=== PATIENT | female | born 1945 | race Caucasian/White ===

== ENCOUNTER 2024-12-14 23:52 | Inpatient (IN) | payer OTHER, SELFPAY ==
[2024-12-14 18:09] VITALS: BP 127/46
--- NOTE | 2024-12-14 19:41 | ED.GENMED ---
History of Present Illness
General
Chief Complaint: Abnormal Lab Value
Time Seen by Provider: 12/14/24 18:50
History of Present Illness
History of Present Illness:
79-year-old female with history of dementia and hypertension presents to the emergency department for evaluation of fatigue and abnormal renal function on outpatient labs. She was admitted to [facility] last year for a similar issue felt to
be prerenal from lack of p.o. intake. She saw her primary care physician last week and was sent for routine outpatient labs which showed a creatinine of 2.9. She followed up today with a supervisor drying and softening who recommended increased fluids and
discontinuation of HCTZ and lisinopril however due to increased fatigue she came here. The patient offers no complaints at this time other than left ear discomfort
Review of Systems
Review of Systems
Allergies reviewed?: Yes
All Other Systems: ROS reviewed and negative except as documented in HPI and ROS
Phy Exam
Physical Exam
Physical Exam:
GEN: Well appearing, NAD, WDWN
HEENT: Oral mucosa moist, no scleral icterus. Cerumen impaction of the left ear
Cardiac: Regular rate and rhythm, no murmurs
Lung: No respiratory distress, no tachypnea, lungs clear to auscultation
Abdomen: Soft and nondistended
MSK: No gross deformity or injuries
Skin: Good color, no pallor or jaundice, no rashes
Neuro: alert and oriented to baseline
Psych: Calm, cooperative
Course
Orders/Labs/Results
Orders:
Orders
12/14/24 19:41
Urinalysis Reflex To Culture Urgent
12/14/24 20:54
Lactated Ringers [Lr] 1,000 ml IV BOLUS
12/14/24 21:00
Complete Blood Count/With Diff Urgent
Comprehensive Metabolic Panel Urgent
12/14/24 21:56
Bladder Scan- Treatment ONCE
Abnormal Lab Results
12/14/24
21:00
RBC 3.93 L 10^6/uL
(4.20-5.40)
Hgb 11.0 L g/dL
(12.0-16.0)
Hct 33.2 L %
(37.0-47.0)
MPV 10.9 H fL
(7.4-10.4)
Carbon Dioxide 20 L mmol/L
(22-30)
BUN 54 H mg/dl
(7-17)
Creatinine 2.8 H mg/dL
(0.6-1.0)
Glucose 65 L mg/dl
(70-99)
12/14/24 21:00
12/14/24 21:00
Vital Signs
Initial and Last Documented VS:
Initial Vital Signs
Temp Pulse Resp BP Pulse Ox
98.6 F 92 20 127/46 97
12/14/24 18:09 12/14/24 18:09 12/14/24 18:09 12/14/24 18:09 12/14/24 18:09
Last Documented Vital Signs
Temp Pulse Resp BP Pulse Ox
98.6 F 70 14 121/39 99
12/14/24 18:09 12/14/24 22:00 12/14/24 22:00 12/14/24 22:00 12/14/24 21:56
MDM/Problems Addressed
MDM/Problems Addressed:
Due to worsening renal function we will admit for IV fluids and further nephrology management. Baseline creatinine reportedly 0.9 on prior labs, per daughter via [facility]
*Critical Care Note
Total Time (30-74mins, 75-104mins- exclusive of procedures): Not Applicable
ED Attending Note
-
Portions of this chart may have been created with voice recognition software.� Occasional wrong word or��sound alike� substitutions may have occurred due to the inherent limitations of voice recognition software.
Discharge Plan
Departure
Patient Disposition: Admit
Date of Disposition: 12/14/24
Time of Disposition: 21:59
Admit to: Med/Surg
Presentation/result/management discussed w/ accepting MD/DO: Hospitalist
Discharge Problem:
Acute kidney injury
Referrals:
Agustin Hearn DO [Family Provider, Family Practice]
Interventions
Interventions:
*Risk Screen - Suicide Last Done: 12/14/24 18:09
*General Assessment Last Done: 12/14/24 18:09
*Neglect/Abuse Screening Last Done: 12/14/24 21:56
*ED- Fall Risk Assessment Last Done: 12/14/24 21:56
*ED COVID-19 Vaccine History Last Done: 12/14/24 21:56
Discharge Date and Time
Print Language: SERBIAN
[2024-12-14] MEDS: LR 1000 IV (21:03)
[2024-12-14 21:11] LABS: % Basophils 0.7 % (0-2); % Immature Granulocytes 0.3 % (0-0.5); % Lymphocytes 23.4 % (20.5-51.1); % Monocytes 5.9 % (1.7-9.3); % Neutrophils 68.7 % (42.2-75.2); Absolute Basophils 0.1 10^3/uL (0-0.2); Absolute Eosinophils 0.1 10^3/uL (0-0.7); Absolute Lymphocytes 1.6 10^3/uL (1.2-3.4); Absolute Monocytes 0.4 10^3/uL (0.1-0.6); Absolute Neutrophils 4.8 10^3/uL (1.4-6.5); Hematocrit 33.2 % (37.0-47.0); Mean Corp Hgb Conc. 33.1 g/dL (33.0-37.0); Mean Corpuscular Volume 84.5 fL (81.0-99.0); Mean Platelet Volume 10.9 fL (7.4-10.4); Nucleated Red Blood Cells % 0 %; Platelet Count 247 10^3/uL (130-400); Red Blood Cell Count 3.93 10^6/uL (4.20-5.40); Red Cell Dist. Width 13.2 % (11.5-14.5); White Blood Cell Count 6.9 10^3/uL (4.8-10.8)
[2024-12-14 21:25] LABS: ALT (SGPT) 11 U/L (0-35); AST (SGOT) 23 U/L (14-36); Albumin 4.2 g/dl (3.5-5.0); Alkaline Phosphatase 114 U/L (38-126); Blood Urea Nitrogen 54 mg/dl (7-17); Calcium 10.1 mg/dl (8.4-10.2); Carbon Dioxide 20 mmol/L (22-30); Chloride 103 mmol/L (98-107); Glucose 65 mg/dl (70-99); Potassium 4.3 mmol/L (3.5-5.1); Sodium 138 mmol/L (135-145); Total Bilirubin 1.1 mg/dl (0.2-1.3); Total Protein 7.1 g/dl (6.3-8.2); eGFR 16.55
[2024-12-14 21:54] VITALS: BP 126/43
[2024-12-14 21:56] VITALS: BMI 26.0
[2024-12-14 22:00] VITALS: BP 121/39
--- NOTE | 2024-12-14 22:11 | HPS.HSE ---
Family Physician
-
Family Physician: Agustin Hearn
Chief Complaint
-
abnormal out patient labs
History of Present Illness
Patient is a 79-year-old female with past medical history significant for hypertension, hyperlipidemia, DM II and dementia who presented to [facility] ED for evaluation of abnormal out patient labs. Patient daughter and at bedside who help with
HPI. Patient was hospitalized fall with JACK at [facility], treated with IVF and kidney function returned to baseline. Since then kidney function has been monitored out patient and has slowly worsened. Patient had labs drawn on December 08, 2024 when
primary referred her to see nephrology. Patient saw clinical data analyst at [facility] earlier today and he recommended patient drink 4 bottles of water daily and repeat labs on Wednesday. Patient went home and became increasingly fatigued so family elected to
bring patient to hospital for evaluation. Denies any recent illness, fever, chills, cough, shortness of breath, chest pain, nausea, vomiting, constipation, diarrhea or urinary symptoms.
Medical History
Past Medical History
Past Medical History: Reports Other
Additional Past Medical History:
hypertension
hyperlipidemia
DM II
dementia
Hx kidney stones
Past Surgical History: Reports Other
Additional Past Surgical History:
cholecystectomy 1996
tonsillectomy
Social History
Unable to obtain full social history at this time due to: Dementia
Tobacco: Non-smoker
Alcohol: None
Drug: None
Personal:
Living: With Family
Family History
Family History: Other (Mother: HTN, uterine cancer; Father: CVA)
Allergies / Home Medications
Allergies reflects when Allergies were last updated in [employer].
Home Medications with original date entered in [employer]
Allergy/Medication List:
Allergies
Allergy/AdvReac Type Severity Reaction Status Date / Time
amlodipine Allergy Unknown Verified 12/14/24 18:13
cephalexin Allergy Unknown Verified 12/14/24 18:13
ciprofloxacin (From Cipro) Allergy Unknown Verified 12/14/24 18:13
levofloxacin Allergy Unknown Verified 12/14/24 18:13
Penicillins Allergy Unknown Verified 12/14/24 18:13
Sulfa (Sulfonamide Allergy Unknown Verified 12/14/24 18:13
Antibiotics)
Home Medications
atorvastatin 20 mg tablet 20 mg PO TID 12/14/24
donepezil 10 mg tablet (Aricept) 10 mg PO HS 12/14/24
ergocalciferol (vitamin D2) 25,000 unit capsule 50,000 unit PO WEEKLY 12/14/24
folic acid 1 mg tablet 1 mg PO DAILY 12/14/24
hydrochlorothiazide 12.5 mg tablet 12.5 mg PO DAILY 12/14/24
lisinopril 40 mg tablet 40 mg PO DAILY 12/14/24
metformin 500 mg tablet 500 mg PO TID 12/14/24
metoprolol succinate 200 mg tablet,extended release 24 hr 200 mg PO DAILY 12/14/24
Review of Systems
-
Unable to obtain full review of systems at this time due to: Dementia
History Source: Patient
Physical Exam
Vital Signs
Vital Signs
Temp Pulse Resp BP Pulse Ox
98.6 F 70 14 121/39 99
12/14/24 18:09 12/14/24 22:00 12/14/24 22:00 12/14/24 22:00 12/14/24 21:56
Physical Exam
General: Well Developed, Well Nourished and No Apparent Distress
HEENT: NormoCephalic, Moist mucous membranes, Atraumatic, Nose Appears Normal and Ears Appear Normal
Respiratory: Clear
Cardiac: S1/S2 and Regular Rhythm
Breast: Deferred by me
GI: Soft, Non Tender, Non Distended and Normal Bowel Sounds; No Organomegaly
Rectal: Deferred by Provider
Genito-urinary: Deferred by me
Musculoskeletal: No Clubbing, No Cyanosis and No Edema
Skin: IV/Catheter Site
Neuro: Awake, Alert and Nonfocal/grossly intact
Psych: Calm and Apparent Dementia
Laboratory Results
-
12/14/24 21:00
12/14/24 21:00
Laboratory Results
Total Bilirubin 1.1 mg/dl (0.2-1.3) 12/14/24 21:00
AST 23 U/L (14-36) 12/14/24 21:00
ALT 11 U/L (0-35) 12/14/24 21:00
Alkaline Phosphatase 114 U/L (38-126) 12/14/24 21:00
Data Reviewed
-
Lab Data: Labs Reviewed by me (BUN 54, Creat 2.8, eGFR 16.55)
Impression/Plan
-
IMPRESSION/PLAN:
#abnormal out patient labs
#acute kidney injury
BUN 54, Creat 2.8, eGFR 16.55
- Admit to med/surg
- IVF NSS 100cc/hr
- monitor BMP
- Check UA and FENA
- bladder scan protocol
- consider Nephrology Consult and renal US if no improvment
#hypertension
- continue metoprolol
- Hold HCTZ and Lisinopril in setting of JACK
#hyperlipidemia
- continue atorvastatin
#DM II
- hold metformin in setting of JACK
#dementia
- continue donepezil
Code status: full code
DVT prophylaxis: heparin sq
--- NOTE | 2024-12-14 22:48 | W.PN.UPDATE ---
Addendum entered and electronically signed by Kaley Agrawal MD 12/14/24 22:50:
Also with urinary burning which may indicate UTI.
Original Note:
Update Note
Progress Note Update
This is an addendum to H&P written by Nisha Germain on 12/14/2024. Patient seen and examined independently with LIBRARY SCIENCE INSTRUCTOR.
79-year-old female past medical history of DM, HLD, hypertension, dementia, kidney stones presenting with fatigue and abnormal renal function on outpatient labs. Creatinine of 2.9. She has chronic loose stools of little bit worsening of her
chronic diarrhea over the past few weeks.
She was hospitalized at [place] in May for prerenal JACK which improved with IV fluids with progressive worsening of renal function. She saw nephrology today who recommended increased free water intake. HCTZ/lisinopril is not a new medication.
Patient with JACK likely combination of prerenal possibly from GI losses and secondary to hydrochlorothiazide/lisinopril.
IV fluids. Hold hydrochlorothiazide/lisinopril. Check urinalysis, FENA, Bladder scan protocol. Nephrology and bladder ultrasound if no improvement in renal function.
[2024-12-14 23:00] VITALS: BP 117/39
[2024-12-14 23:44] LABS: Urine Albumin Negative (Neg - Trace); Urine Bilirubin Negative (Negative); Urine Character Clear (Clear); Urine Color Yellow; Urine Glucose Negative (Negative); Urine Ketone 1+ (Negative); Urine Leukocyte 2+ (Negative); Urine Nitrite Negative (Negative); Urine Occult Blood Negative (Negative); Urine Urobilinogen Negative (Neg - 1+)
[2024-12-15 00:16] VITALS: BP 131/49; BMI 24.1
[2024-12-15] MEDS: HEPARIN 5000 UNITS SC ×4 (00:39→22:39)
[2024-12-15] MEDS: NSS 1000 IV ×3 (00:40→20:19)
[2024-12-15 00:47] LABS: Urine Squamous Cell >30 /LPF (Few); Urine Urothelial Cell >30 /LPF (FEW)
[2024-12-15 00:48] LABS: Urine Bacteria Moderate (Negative); Urine Red Blood Cell 0-2 /HPF (0-2); Urine White Cell >100 /HPF (0-5)
[2024-12-15 06:56] VITALS: BP 136/56
[2024-12-15 07:32] LABS: Blood Urea Nitrogen 45 mg/dl (7-17); Calcium 9.3 mg/dl (8.4-10.2); Carbon Dioxide 24 mmol/L (22-30); Chloride 107 mmol/L (98-107); Estimated Creatinine Clearance 15 ml/min; Glucose 73 mg/dl (70-99); Potassium 3.6 mmol/L (3.5-5.1); Sodium 139 mmol/L (135-145); eGFR 20.96
[2024-12-15] MEDS: TOPROL XL 200 MG PO (08:19)
[2024-12-15] MEDS: FOLVITE 1 MG PO (08:19)
--- NOTE | 2024-12-15 08:27 | W.PN.HOSP.TC ---
Today's Communication/Plan
-
Monitor BMP
Assessment / Plan
Assessment / Plan
Impression:
79-year-old female here with history of hypertension, hyperlipidemia, diabetes, dementia who presented to [facility] with abnormal blood work concerning of acute on chronic renal failure and also change in mental status. JACK suspect
prerenal/hydrochlorothiazide/lisinopril induced. �Started on IV fluids, nephrology
Assessment/plan:
Acute renal failure on chronic kidney
BUN 54, Creat 2.8, eGFR 16.55
- Admit to med/surg
- IVF NSS 100cc/hr
- monitor BMP
- Ultrasound kidney/
- bladder scan protocol
- Consult nephrology
Concern of UTI.
Patient has a long list of antibiotic allergy we will hold off starting antibiotic.
Pending urine culture
Essential hypertension.
- continue metoprolol
- Hold HCTZ and Lisinopril in setting of JACK
Hyperlipidemia
- continue atorvastatin
History of diabetes mellitus
hold metformin in setting of JACK
Blood sugar seems to be controlled
Insulin sliding scale
Diabetic diet
Hemoglobin A1c
Dementia
- continue donepezil
CODE STATUS: Full code
DVT prophylaxis: Lovenox
Diet: Cardiac diet
Family communication: Discussed with daughter at bedside
Disposition: Continue to monitor BMP
Total time spent on today's encounter was 65 minutes which included time spent in counseling the patient/family regarding diagnosis and treatment plan as listed above, goals of care, and symptom management. Case was discussed with nursing staff,
specialists, and care coordinators/case management. All labs and imaging personally reviewed by me. Remainder the time spent in detailed review of previous records, lab data, imaging, and other medical provider documentation.
Anticipated Discharge: 24 - 48 hours
Subjective/Interval History
-
Date of Service: December 15, 2024
Patient seen and examined at bedside, daughter at bedside, denies any chest pain or shortness of breath, no abdominal pain, no nausea, no vomiting, no diarrhea or constipation.
Objective Data
-
Labs:
Laboratory Results
12/14/24 12/15/24
21:00 06:19
WBC 6.9
Hgb 11.0 L
Hct 33.2 L
Plt Count 247
Sodium 138 139
Potassium 4.3 3.6
Chloride 103 107
Carbon Dioxide 20 L 24
BUN 54 H 45 H
Creatinine 2.8 H 2.3 H
Glucose 65 L 73
Calcium 10.1 9.3
Total Bilirubin 1.1
AST 23
ALT 11
Alkaline Phosphatase 114
Vital Signs:
Vital Signs
Temp Pulse Resp BP Pulse Ox
97.5 F 69 16 136/56 99
12/15/24 06:56 12/15/24 08:19 12/15/24 06:56 12/15/24 08:19 12/15/24 08:15
I&O
12/14/24 12/15/24 12/16/24
06:59 06:59 06:59
Intake Total 700 / 700
Balance 700 / 700
Physical Exam
-
General: Well Developed, Well Nourished, No Apparent Distress and Comfortable
HEENT: Normocephalic, Atraumatic, Moist Mucous Membranes, No Ptosis, PERRLA and Nose Appears Normal
Respiratory: Clear to Auscultation and Non Labored Respirations
Cardiac: Regular Rhythm and S1/S2
Breast: Deferred by me
GI: Soft, Nontender, Nondistended and Normal Bowel Sounds
Genito-urinary: No Costovertebral Tender
Musculoskeletal: No Clubbing, No Cyanosis and No Edema
Skin: Warm
Neuro: Awake, Alert, Oriented, AO x 3 and No Motor Deficits
Psych: Calm
Data Reviewed
-
Diagnostic Radiology: Image personally visualized and interpreted and Report Reviewed by me
CT Scan: Image personally visualized and interpreted and Report Reviewed by me
Ultrasound: Image personally visualized and interpreted and Report Reviewed by me
MRI: Image personally visualized and interpreted and Report Reviewed by me
Medical Tests (Nuc Med, Echo etc): Image personally visualized and interpreted and Report Reviewed by me
Labs: Labs Reviewed by me
Old Records: Reviewed
[2024-12-15 10:25] VITALS: BP 120/52; PULSE 52; O2SAT 99
--- NOTE | 2024-12-15 10:31 | W.CON.NEPH ---
Consultation
-
Date/Time Consultation Requested: 12/15/2024 10:30 AM
Date/Time Consultation Performed: 12/15/2024 1038
Requesting Provider: Dr. Awad
Performing Provider: Dr. Gloria
Reason for Consultation: Acute kidney/CKD
Medical History
-
Chief Complaint: Acute kidney injury
History of Present Illness:
Patient is a 79-year-old female with past medical history significant for hypertension ( on lisinopril/hctz), hyperlipidemia (on statin therapy), DM II (on metformin) and dementia who presented to [facility] ED for evaluation of abnormal out patient
labs.. Patient was hospitalized in fall of 2023 with JACK at [facility], treated with IVF and kidney function returned to baseline. Since then kidney function has been monitored out patient and has slowly worsened. Patient had labs drawn on December 08, 2024
when primary referred her to see nephrology. Patient saw clerical adjudicator at [facility] earlier today and he recommended patient drink 4 bottles of water daily and repeat labs on Wednesday. Patient went home and became increasingly fatigued so family
elected to bring patient to hospital for evaluation. Denies any recent illness, fever, chills, cough, shortness of breath, chest pain, nausea, vomiting, constipation, diarrhea or urinary symptoms. Nephrology was consulted for a creatinine of 2.3.
Past Medical History
hyperlipidemia
CKd ?
DM II
dementia
Hx kidney stones
Past Surgical History: Reports Other
Additional Past Surgical History:
cholecystectomy 1996
tonsillectomy
Social History
Tobacco: Non-Smoker
Family History
no ckd
Allergies / Home Medications
Allergy/AdvReac Type Severity Reaction Status Date / Time
amlodipine Allergy Unknown Verified 12/14/24 18:13
cephalexin Allergy Unknown Verified 12/14/24 18:13
ciprofloxacin (From Cipro) Allergy Unknown Verified 12/14/24 18:13
levofloxacin Allergy Unknown Verified 12/14/24 18:13
Penicillins Allergy Unknown Verified 12/14/24 18:13
Sulfa (Sulfonamide Allergy Unknown Verified 12/14/24 18:13
Antibiotics)
�Medication �Instructions �Recorded �Confirmed �Type
atorvastatin 20 mg tablet 20 mg PO TID 12/14/24 12/14/24 History
donepezil 10 mg tablet (Aricept) 10 mg PO HS 12/14/24 12/14/24 History
ergocalciferol (vitamin D2) 25,000 50,000 unit PO WEEKLY 12/14/24 12/14/24 History
unit capsule
folic acid 1 mg tablet 1 mg PO DAILY 12/14/24 12/14/24 History
hydrochlorothiazide 12.5 mg tablet 12.5 mg PO DAILY 12/14/24 12/14/24 History
lisinopril 40 mg tablet 40 mg PO DAILY 12/14/24 12/14/24 History
metformin 500 mg tablet 500 mg PO TID 12/14/24 12/14/24 History
metoprolol succinate 200 mg 200 mg PO DAILY 12/14/24 12/14/24 History
tablet,extended release 24 hr
Review of Systems
-
Unable to obtain full review of systems at this time due to: Dementia (Can still answer most questions, not oriented to time or month but knows year)
History Source: Patient
Abdomen/GI: Diarrhea
Physical Exam
Vital Signs
Vital Signs
Temp Pulse Resp BP Pulse Ox
97.5 F 69 16 136/56 99
12/15/24 06:56 12/15/24 08:19 12/15/24 06:56 12/15/24 08:19 12/15/24 08:15
Lab Results
12/14/24 21:00
12/15/24 06:19
WBC 6.9 10^3/uL (4.8-10.8) 12/14/24 21:00
RBC 3.93 10^6/uL (4.20-5.40) L 12/14/24 21:00
Hgb 11.0 g/dL (12.0-16.0) L 12/14/24 21:00
Hct 33.2 % (37.0-47.0) L 12/14/24 21:00
Plt Count 247 10^3/uL (130-400) 12/14/24 21:00
Sodium 139 mmol/L (135-145) 12/15/24 06:19
Potassium 3.6 mmol/L (3.5-5.1) 12/15/24 06:19
Chloride 107 mmol/L (98-107) 12/15/24 06:19
Carbon Dioxide 24 mmol/L (22-30) 12/15/24 06:19
BUN 45 mg/dl (7-17) H 12/15/24 06:19
Creatinine 2.3 mg/dL (0.6-1.0) H 12/15/24 06:19
eGFR 20.96 12/15/24 06:19
Glucose 73 mg/dl (70-99) 12/15/24 06:19
Calcium 9.3 mg/dl (8.4-10.2) 12/15/24 06:19
Albumin 4.2 g/dl (3.5-5.0) 12/14/24 21:00
Physical Exam
General: Well Developed, Well Nourished and No Apparent Distress
HEENT: NormoCephalic, Moist mucous membranes, Atraumatic, Nose Appears Normal and Ears Appear Normal
Respiratory: Clear
Cardiac: S1/S2 and Regular Rhythm
Breast: Deferred by me
GI: Soft, Non Tender, Non Distended and Normal Bowel Sounds; No Organomegaly
Rectal: Deferred by Provider
Genito-urinary: Deferred by me
Musculoskeletal: No Clubbing, No Cyanosis and No Edema
Skin: IV/Catheter Site
Neuro: Awake, Alert and Nonfocal/grossly intact
Psych: Calm and Apparent Dementia, answers most questions correctly but was unable to recall month, recognizes all family members
Vascular: +1 radial and +1 anterior and posterior tibial
Data Reviewed
-
Labs: Labs Reviewed by me (BMP CBC, UA)
Old Records: Requested (Request records from [facility])
Assessment/Plan
-
Impression:
JACK?
CKD
Hypertension
Diabetes
Hyperlipidemia
Dementia
Plan:
JACK/CKD new workuup
-JACK likely related to hypotension which was noted prior to arrival to emergency room as per daughter who checked her blood pressure which was significantly depressed
-IV prerenal stimulus, will also check cortisol, follow-up urine culture for possible urosepsis
- Urinalysis was without protein or blood, therefore not consistent with acute or chronic GN
- Check postvoid bladder scan to evaluate for obstructive component
- Check kidney and bladder ultrasound in regards to CKD work
- Quantitate any underlying tubular proteinuria with urine protein to creatinine
- VINNIE and hydrochlorothiazide currently held
[2024-12-15 11:20] VITALS: BP 120/52; PULSE 52; O2SAT 99
[2024-12-15 15:36] VITALS: BP 116/49
[2024-12-15 15:40] LABS: Urine Sodium 22 mmol/L (30-90)
--- NOTE | 2024-12-15 15:47 | PTCARENOTE ---
Pt awake and alert; oriented to self/place/birthdate; confused at times to date/year; forgetful. GRECO well; OOB to BR/chair with assistance; sl unsteady w/OOb activity. VSS. On room air-pulse ox 100%, no SOB noted. Abd soft, rounded, gaye PO well.
Voids in BR without difficulty. IVF's NSS @ 100 ml/hr infusing via Rt forearm site without sx of infiltration. Resting in bed at present, no c/o. Will continue to monitor.
[2024-12-15 16:05] LABS: Glucose - Point of Care 139 mg/dl (70-99)
--- NOTE | 2024-12-15 17:33 | CM ---
Alert awake oriented patient who lives with her Layo and son Kenny 47yo in a 1 story home with 5 steps to enter.She is independent in activates of daily living.She does not drive .No DME. Reviewed PT OT = SNF. Daughter wants her to go to
SNF. Pt does not want to go to SNF. [facility] Data given form [facility] to dgt .
No VN in past . No SNF hx
Pharmacy [facility]
PCP Dr Hearn
PLAN Home with VN VS SNF will need auth
[2024-12-15] MEDS: ARICEPT 10 MG PO (20:21)
[2024-12-15] MEDS: LIPITOR 40 MG PO (20:21)
[2024-12-15 21:07] LABS: Glucose - Point of Care 175 mg/dl (70-99)
[2024-12-15 23:05] VITALS: BP 159/61
[2024-12-16 05:35] LABS: Protein/creatinine Ratio 0.3; Urine Protein 19 mg/dl
[2024-12-16 05:41] LABS: Blood Urea Nitrogen 32 mg/dl (7-17); Calcium 8.8 mg/dl (8.4-10.2); Carbon Dioxide 22 mmol/L (22-30); Chloride 113 mmol/L (98-107); Estimated Creatinine Clearance 22 ml/min; Glucose 97 mg/dl (70-99); Potassium 3.9 mmol/L (3.5-5.1); Sodium 141 mmol/L (135-145)
[2024-12-16 06:00] VITALS: BMI 24.8
[2024-12-16] MEDS: NSS 1000 IV ×2 (06:09→19:36)
[2024-12-16 06:11] LABS: Cortisol, Random 8.2 ug/dl
[2024-12-16 07:04] LABS: Glucose - Point of Care 91 mg/dl (70-99)
[2024-12-16 07:40] VITALS: BP 119/51
[2024-12-16] MEDS: HEPARIN 5000 UNITS SC ×2 (08:40→17:03)
[2024-12-16] MEDS: TOPROL XL PO (08:41)
[2024-12-16] MEDS: FOLVITE 1 MG PO (08:41)
[2024-12-16 10:52] LABS: Glycohemoglobin (HgbA1c) 6.3 % (4.0-5.6)
[2024-12-16 12:23] LABS: Glucose - Point of Care 114 mg/dl (70-99)
--- NOTE | 2024-12-16 13:00 | W.PN.HOSP.TC ---
Today's Communication/Plan
-
Ct abdomen and pelvis.
Assessment / Plan
Assessment / Plan
Impression:
79-year-old female here with history of hypertension, hyperlipidemia, diabetes, dementia who presented to [facility] with abnormal blood work concerning of acute on chronic renal failure and also change in mental status. JACK suspect
prerenal/hydrochlorothiazide/lisinopril induced. �Started on IV fluids, nephrology.
Creatinine continue to improve, patient was having diarrhea
Assessment/plan:
Acute renal failure on chronic kidney
BUN 54, Creat 2.8, eGFR 16.55
- Admit to med/surg
- IVF NSS 100cc/hr
- monitor BMP
- Ultrasound kidney/
- bladder scan protocol
- Consult nephrology
12/16
CT abdomen pending
BUN
(7-17�mg/dl) 54�H
45�H
32�H
Creatinine
(0.6-1.0�mg/dL) 2.8�H
2.3�H
1.6�H
UTI ruled out
Diarrhea illness, rule out infectious diarrhea.
Stool sample.
CT abdomen and pelvis pending
Essential hypertension.
- continue metoprolol
- Hold HCTZ and Lisinopril in setting of JACK
Hyperlipidemia
- continue atorvastatin
History of diabetes mellitus
hold metformin in setting of JACK
Blood sugar seems to be controlled
Insulin sliding scale
Diabetic diet
Hemoglobin A1c 6.3
Dementia
- continue donepezil
CODE STATUS: Full code
DVT prophylaxis: Lovenox
Diet: Cardiac diet
Family communication: Discussed with daughter at bedside
Disposition: Ct abdomen and pelvis.
Total time spent on today's encounter was 65 minutes which included time spent in counseling the patient/family regarding diagnosis and treatment plan as listed above, goals of care, and symptom management. Case was discussed with nursing staff,
specialists, and care coordinators/case management. All labs and imaging personally reviewed by me. Remainder the time spent in detailed review of previous records, lab data, imaging, and other medical provider documentation.
Anticipated Discharge: Within 24 hours
Subjective/Interval History
-
Date of Service: December 16, 2024
Patient seen and examined at bedside, family at bedside, patient had episodes of change in mental status today morning, still with diarrhea and abdominal discomfort.
Denies any chest pain or shortness of breath.
Objective Data
-
Labs:
Laboratory Results
12/16/24
04:13
Sodium 141
Potassium 3.9
Chloride 113 H
Carbon Dioxide 22
BUN 32 H
Creatinine 1.6 H
Glucose 97
Calcium 8.8
Vital Signs:
Vital Signs
Temp Pulse Resp BP Pulse Ox
97.5 F 54 16 119/51 99
12/16/24 07:40 12/16/24 08:41 12/16/24 07:40 12/16/24 07:40 12/16/24 07:40
I&O
12/15/24 12/16/24 12/17/24
06:59 06:59 06:59
Intake Total 700 / 700 1959
Balance 700 / 700 1959
Physical Exam
-
General: Well Developed, Well Nourished, No Apparent Distress and Comfortable
HEENT: Normocephalic, Atraumatic, Moist Mucous Membranes, No Ptosis, PERRLA and Nose Appears Normal
Respiratory: Clear to Auscultation and Non Labored Respirations
Cardiac: Regular Rhythm and S1/S2
Breast: Deferred by me
GI: Soft, Nontender, Nondistended and Normal Bowel Sounds
Genito-urinary: No Costovertebral Tender
Musculoskeletal: No Clubbing, No Cyanosis and No Edema
Skin: Warm
Neuro: Awake, Alert, Oriented, AO x 3 and No Motor Deficits
Psych: Calm
Data Reviewed
-
Diagnostic Radiology: Image personally visualized and interpreted and Report Reviewed by me
CT Scan: Image personally visualized and interpreted and Report Reviewed by me
Ultrasound: Image personally visualized and interpreted and Report Reviewed by me
MRI: Image personally visualized and interpreted and Report Reviewed by me
Medical Tests (Nuc Med, Echo etc): Image personally visualized and interpreted and Report Reviewed by me
Labs: Labs Reviewed by me
Old Records: Reviewed
[2024-12-16] MEDS: OMNIPAQUE 50 ML PO (13:26)
--- NOTE | 2024-12-16 13:50 | W.PN.NEPH.PH ---
Today's Communication / Plan
-
JACK improving
for CT scan
bp more stable
Assessment/Plan
-
Impression:
JACK?
CKD
Hypertension
Diabetes
Hyperlipidemia
Dementia
Plan:
JACK/CKD new workuup
-JACK likely related to hypotension which was noted prior to arrival to emergency room as per daughter who checked her blood pressure which was significantly depressed
-IV prerenal stimulus, cortisol 8 up.cr ratio 300mg
- Urinalysis was without protein or blood, therefore not consistent with acute or chronic GN
- Checked postvoid bladder scan to evaluate for obstructive component
-Follow-up CT scan: re CKD and ongoing diarrhea
- VINNIE and hydrochlorothiazide currently held
-
-
Date of Service: December 16, 2024
CC / HPI / ROS
-
Chief Complaint:
JACK
History of Present Illness:
creatinine down to 1.6
bp more stable
Review of Systems:
subjectively non oilguriic
diarrhea
Labs
-
Labs:
WBC 6.9 10^3/uL (4.8-10.8) 12/14/24 21:00
RBC 3.93 10^6/uL (4.20-5.40) L 12/14/24 21:00
Hgb 11.0 g/dL (12.0-16.0) L 12/14/24 21:00
Hct 33.2 % (37.0-47.0) L 12/14/24 21:00
Plt Count 247 10^3/uL (130-400) 12/14/24 21:00
Sodium 141 mmol/L (135-145) 12/16/24 04:13
Potassium 3.9 mmol/L (3.5-5.1) 12/16/24 04:13
Chloride 113 mmol/L (98-107) H 12/16/24 04:13
Carbon Dioxide 22 mmol/L (22-30) 12/16/24 04:13
BUN 32 mg/dl (7-17) H 12/16/24 04:13
Creatinine 1.6 mg/dL (0.6-1.0) H 12/16/24 04:13
eGFR 32.40 12/16/24 04:13
Glucose 97 mg/dl (70-99) 12/16/24 04:13
Calcium 8.8 mg/dl (8.4-10.2) 12/16/24 04:13
Albumin 4.2 g/dl (3.5-5.0) 12/14/24 21:00
Physical Exam
-
Vital Signs:
Vital Signs
Temp Pulse Resp BP Pulse Ox
97.5 F 54 16 119/51 99
12/16/24 07:40 12/16/24 08:41 12/16/24 07:40 12/16/24 07:40 12/16/24 07:40
Cardiovascular:: Regular rate and rhythm
Respiratory:: Bilateral: CTA
Lung Excursion:: Normal
Abdomen:: Nontender and Soft
Bowel Sounds:: Normal
Extremity Edema:: None: Bilateral:
Nicholson Catheter: No
[2024-12-16 15:35] VITALS: BP 142/57
[2024-12-16 16:56] LABS: Glucose - Point of Care 134 mg/dl (70-99)
--- NOTE | 2024-12-16 17:55 | CON.MD ---
Consultation - Medical
-
see dictated note
pt received all care thru aleida/vickie
remote hx of stones
presents with acute on chronic renal insuff
CT shows large volume bilateral stones with large right obstructing ureteral stone with sig hydro
pt has been in house for over 48hrs- not toxic and no pain
reviewed with pt and
will staged procedures given stone burden
tomorrow for right stent- possible ureteroscopy
risks, benefits, alternatives and disabilities reviewed
Consultation
-
Date/Time Consultation Requested: 12/16/24 at 5pm
Date/Time Consultation Performed: 12/16/24 at 5:30pm
Requesting Provider: dr ocampo
Performing Provider: dr capps
Reason for Consultation: stones
[2024-12-16] MEDS: LIPITOR 40 MG PO (21:15)
[2024-12-16] MEDS: ARICEPT 10 MG PO (21:15)
[2024-12-16 21:16] LABS: Glucose - Point of Care 86 mg/dl (70-99)
[2024-12-16 23:31] VITALS: BP 147/66
[2024-12-17] VITALS (11 sets, daily range): BP systolic 115–161; BP diastolic 56–79; BMI 24.6
[2024-12-17 00:07] LABS: Glucose - Point of Care 80 mg/dl (70-99)
[2024-12-17] MEDS: NSS 1000 IV ×2 (05:18→22:51)
[2024-12-17 05:46] LABS: Hematocrit 31.1 % (37.0-47.0); Hemoglobin 10.3 g/dL (12.0-16.0); Mean Corp Hgb Conc. 33.1 g/dL (33.0-37.0); Mean Corpuscular Hgb 28.2 pg (27.0-31.0); Mean Corpuscular Volume 85.2 fL (81.0-99.0); Mean Platelet Volume 11.7 fL (7.4-10.4); Platelet Count 215 10^3/uL (130-400); Red Blood Cell Count 3.65 10^6/uL (4.20-5.40); Red Cell Dist. Width 13.5 % (11.5-14.5); White Blood Cell Count 5.5 10^3/uL (4.8-10.8)
[2024-12-17 05:48] LABS: Glucose - Point of Care 79 mg/dl (70-99)
[2024-12-17 06:13] LABS: Blood Urea Nitrogen 20 mg/dl (7-17); Calcium 8.7 mg/dl (8.4-10.2); Carbon Dioxide 19 mmol/L (22-30); Chloride 115 mmol/L (98-107); Estimated Creatinine Clearance 27 ml/min; Glucose 83 mg/dl (70-99); Potassium 3.7 mmol/L (3.5-5.1); Sodium 142 mmol/L (135-145); eGFR 41.57
[2024-12-17] MEDS: FOLVITE 1 MG PO (08:08)
[2024-12-17] MEDS: TOPROL XL 200 MG PO (08:08)
--- NOTE | 2024-12-17 08:23 | W.PN.UPDATE ---
Update Note
Progress Note Update
pt stable overnight
cr normalized
plan to OR today for stent/ureteroscopy
--- NOTE | 2024-12-17 11:19 | W.PN.HOSP.TC ---
Today's Communication/Plan
-
OR by urology today
Assessment / Plan
Assessment / Plan
Impression:
79-year-old female here with history of hypertension, hyperlipidemia, diabetes, dementia who presented to [facility] with abnormal blood work concerning of acute on chronic renal failure and also change in mental status. JACK suspect
prerenal/hydrochlorothiazide/lisinopril induced. �Started on IV fluids, nephrology.
Creatinine continue to improve, patient was having diarrhea
Ordered CT abdomen pelvis which shows distal right ureteral stone, urology consulted and plan for OR today
Assessment/plan:
Acute renal failure on chronic kidney
BUN 54, Creat 2.8, eGFR 16.55
- Admit to med/surg
- IVF NSS 100cc/hr
- monitor BMP
- Ultrasound kidney/
- bladder scan protocol
- Consult nephrology
12/16
CT abdomen shows:
Some right renal atrophy. Nonobstructing right renal calculi. Moderate right hydroureteronephrosis with 0.5 cm calculus seen in the distal right ureter.
Nonobstructing left renal calculi.
Prior cholecystectomy.
Tiny bilateral pleural effusions.
12/17
Creatinine proved.
Surgery consulted.
Patient for OR today for stent/ureteroscopy.
Distal right ureter stone with Moderate right hydroureteronephrosis
Urology consulted.
For OR today.
UTI ruled out
Diarrhea illness, rule out infectious diarrhea.
Stool sample.
CT abdomen and pelvis shwos Sigmoid diverticulosis, limited without IV contrast with some at least diffuse relative wall thickening which may be due to underdistention. Other etiology of the sigmoid wall thickening such as colitis or less likely
diverticulitis cannot be excluded. Small volume free fluid in the dependent true pelvis.
C diff negative, pending other stool study
Essential hypertension.
- continue metoprolol
- Hold HCTZ and Lisinopril in setting of JACK
Hyperlipidemia
- continue atorvastatin
History of diabetes mellitus
hold metformin in setting of JACK
Blood sugar seems to be controlled
Insulin sliding scale
Diabetic diet
Hemoglobin A1c 6.3
Dementia
- continue donepezil
CODE STATUS: Full code
DVT prophylaxis: Lovenox
Diet: Cardiac diet
Family communication: Discussed with daughter at bedside
Disposition: OR by urology today
Total time spent on today's encounter was 65 minutes which included time spent in counseling the patient/family regarding diagnosis and treatment plan as listed above, goals of care, and symptom management. Case was discussed with nursing staff,
specialists, and care coordinators/case management. All labs and imaging personally reviewed by me. Remainder the time spent in detailed review of previous records, lab data, imaging, and other medical provider documentation.
Anticipated Discharge: 24 - 48 hours
Subjective/Interval History
-
Date of Service: December 17, 2024
Patient seen and examined at bedside, denies any chest pain or shortness of breath, no abdominal pain, no nausea, no vomiting, still with diarrhea.
Objective Data
-
Labs:
Laboratory Results
12/17/24
04:27
WBC 5.5
Hgb 10.3 L
Hct 31.1 L
Plt Count 215
Sodium 142
Potassium 3.7
Chloride 115 H
Carbon Dioxide 19 L
BUN 20 H
Creatinine 1.3 H
Glucose 83
Calcium 8.7
Vital Signs:
Vital Signs
Temp Pulse Resp BP Pulse Ox
97.6 F 62 14 134/59 97
12/17/24 07:20 12/17/24 07:20 12/17/24 07:20 12/17/24 07:20 12/17/24 07:20
I&O
12/16/24 12/17/24 12/18/24
06:59 06:59 06:59
Intake Total 1959 720 / 720
Balance 1959 720 / 720
Physical Exam
-
General: Well Developed, Well Nourished, No Apparent Distress and Comfortable
HEENT: Normocephalic, Atraumatic, Moist Mucous Membranes, No Ptosis, PERRLA and Nose Appears Normal
Respiratory: Clear to Auscultation and Non Labored Respirations
Cardiac: Regular Rhythm and S1/S2
Breast: Deferred by me
GI: Soft, Nontender, Nondistended and Normal Bowel Sounds
Genito-urinary: No Costovertebral Tender
Musculoskeletal: No Clubbing, No Cyanosis and No Edema
Skin: Warm
Neuro: Awake, Alert, Oriented, AO x 3 and No Motor Deficits
Psych: Calm
Data Reviewed
-
Diagnostic Radiology: Image personally visualized and interpreted and Report Reviewed by me
CT Scan: Image personally visualized and interpreted and Report Reviewed by me
Ultrasound: Image personally visualized and interpreted and Report Reviewed by me
MRI: Image personally visualized and interpreted and Report Reviewed by me
Medical Tests (Nuc Med, Echo etc): Image personally visualized and interpreted and Report Reviewed by me
Labs: Labs Reviewed by me
Old Records: Reviewed
[2024-12-17 12:00] LABS: Glucose - Point of Care 87 mg/dl (70-99)
--- NOTE | 2024-12-17 14:27 | W.IMMPOSTOP ---
Surgical Immed Post Op Note
-
Primary Surgeon:
jefry
Assisting Surgeon:
Pre-op Diagnosis:
right ureteral and renal stone/hydronephrosis
Post-op Diagnosis:
same
Procedure Performed:
cysto/right retrograde, right ureteral stent
Anesthesia Type:
gen
Specimen / Cultures:
ucx
Estimated Blood Loss:
1cc
Complications:
none
Operative Findings:
right ureteral stent placed
check ucx
home when medically stable and outpt f/u
--- NOTE | 2024-12-17 15:02 | W.PN.NEPH.PH ---
Today's Communication / Plan
-
Follow BMP
Kidney function continues to improve as hemodynamics have stabilized
Status post right ureteroscopy with stent placement
Assessment/Plan
-
Impression:
JACK?
CKD
Hypertension
Diabetes
Hyperlipidemia
Dementia
Plan:
JACK/CKD new workuup
-JACK likely related to hypotension which was noted prior to arrival to emergency room as per daughter who checked her blood pressure which was significantly depressed
-IV prerenal stimulus, cortisol 8 up.cr ratio 300mg
- Urinalysis was without protein or blood, therefore not consistent with acute or chronic GN
- Checked postvoid bladder scan to evaluate for obstructive component, CT scan noted right hydronephrosis with stone and patient currently on cystoscopy for stent placement
- VINNIE and hydrochlorothiazide currently held
-
-
Date of Service: December 17, 2024
CC / HPI / ROS
-
Chief Complaint:
JACK
History of Present Illness:
creatinine down to 1.3
bp more stable
Review of Systems:
subjectively non oilguriic
diarrhea
Labs
-
Labs:
WBC 5.5 10^3/uL (4.8-10.8) 12/17/24 04:27
RBC 3.65 10^6/uL (4.20-5.40) L 12/17/24 04:27
Hgb 10.3 g/dL (12.0-16.0) L 12/17/24 04:27
Hct 31.1 % (37.0-47.0) L 12/17/24 04:27
Plt Count 215 10^3/uL (130-400) 12/17/24 04:27
Sodium 142 mmol/L (135-145) 12/17/24 04:27
Potassium 3.7 mmol/L (3.5-5.1) 12/17/24 04:27
Chloride 115 mmol/L (98-107) H 12/17/24 04:27
Carbon Dioxide 19 mmol/L (22-30) L 12/17/24 04:27
BUN 20 mg/dl (7-17) H 12/17/24 04:27
Creatinine 1.3 mg/dL (0.6-1.0) H 12/17/24 04:27
eGFR 41.57 12/17/24 04:27
Glucose 83 mg/dl (70-99) 12/17/24 04:27
Calcium 8.7 mg/dl (8.4-10.2) 12/17/24 04:27
Albumin 4.2 g/dl (3.5-5.0) 12/14/24 21:00
Physical Exam
-
Vital Signs:
Vital Signs
Temp Pulse Resp BP Pulse Ox
97.7 F 76 15 143/66 100
12/17/24 14:30 12/17/24 14:45 12/17/24 14:45 12/17/24 14:45 12/17/24 14:45
Cardiovascular:: Regular rate and rhythm
Respiratory:: Bilateral: CTA
Lung Excursion:: Normal
Abdomen:: Nontender and Soft
Bowel Sounds:: Normal
Extremity Edema:: None: Bilateral:
Nicholson Catheter: No
[2024-12-17 15:11] LABS: Glucose - Point of Care 111 mg/dl (70-99)
--- NOTE | 2024-12-17 16:15 | PTCARENOTE ---
Pt was received from PACU at 1615. Pt is AAOx3, VSS. Pt complaining of 7/10 burning pain over the bladder. Dr Joaquin notified. Orders received for Detrol, Pyridium and Tramadol. Detrol and Pyridium given.
[2024-12-17 16:25] LABS: Glucose - Point of Care 113 mg/dl (70-99)
[2024-12-17] MEDS: DETROL LA 4 MG PO (16:56)
[2024-12-17] MEDS: Pyridium 100 MG PO ×2 (17:20→23:01)
[2024-12-17 21:10] LABS: Glucose - Point of Care 175 mg/dl (70-99)
[2024-12-17] MEDS: ARICEPT 10 MG PO (21:30)
[2024-12-17] MEDS: LIPITOR 40 MG PO (21:30)
[2024-12-18 03:28] VITALS: BP 160/65
[2024-12-18 06:08] VITALS: BP 114/56
--- NOTE | 2024-12-18 06:49 | W.PN.URO.CBU ---
Today's Communication / Plan
-
follow up ucx
Assessment / Plan
-
ARF- essentially resolved with hydration
large volume bilateral renal stones and obstructing right ureteral stone s/p stent
pt stable urologically
f/u am labs and intra-op ucx
if labs stable and when ucx result received- ok for discharge with outpt urology f/u to review next step
Diagnosis
-
Date of Service: December 18, 2024
-
Patient Diagnosis:
large volume bilateral nephrolithiasis
obstructing right ureteral stone
ELISSA
Post Op Day:
12/17 cysto/right ureteral stent placement
Subjective
-
pt feels ok
had some expected post op bladder irritation
no fevers
am labs pending
ucx pending
Objective
-
Vital Signs
Temp Pulse Resp BP Pulse Ox
97.7 F 75 16 114/56 100
12/18/24 03:28 12/18/24 06:08 12/18/24 03:28 12/18/24 06:08 12/18/24 03:28
Intake and Output
12/16/24 12/17/24 12/18/24
06:59 06:59 06:59
Intake Total 1959 720 / 720 100 / 100
Balance 1959 720 / 720 100 / 100
Intake:
Oral fluids 760 / 760 720 / 720
IV fluids (Total) 1200 / 1200 100 / 100
Normosol 100 / 100
Other:
Number of approximated MODERATE 2 2
amounts of urine
Number of approximated LARGE 2
amounts of urine
Review of Systems
-
Constitutional: Fatigue
Respiratory: No Symptoms
Cardiac: No Symptoms
Abdomen/GI: No Symptoms
: Frequency
Physical Exam
-
General - no acute distress
Abdomen - soft, non-tender
[2024-12-18 07:33] VITALS: BP 141/53
[2024-12-18 07:51] LABS: Hematocrit 30.5 % (37.0-47.0); Hemoglobin 10.3 g/dL (12.0-16.0); Mean Corp Hgb Conc. 33.8 g/dL (33.0-37.0); Mean Corpuscular Hgb 28.4 pg (27.0-31.0); Platelet Count 216 10^3/uL (130-400); Red Blood Cell Count 3.63 10^6/uL (4.20-5.40); Red Cell Dist. Width 13.3 % (11.5-14.5); White Blood Cell Count 5.7 10^3/uL (4.8-10.8)
[2024-12-18 07:52] LABS: Glucose - Point of Care 127 mg/dl (70-99)
[2024-12-18 08:00] LABS: Blood Urea Nitrogen 16 mg/dl (7-17); Carbon Dioxide 18 mmol/L (22-30); Chloride 115 mmol/L (98-107); Estimated Creatinine Clearance 25 ml/min; Glucose 124 mg/dl (70-99); Potassium 4.4 mmol/L (3.5-5.1); Sodium 141 mmol/L (135-145); eGFR 38.03
[2024-12-18] MEDS: FOLVITE 1 MG PO (09:02)
[2024-12-18] MEDS: TOPROL XL 200 MG PO (09:02)
[2024-12-18] MEDS: Pyridium 100 MG PO ×3 (09:03→23:01)
[2024-12-18] MEDS: NSS IV (09:06)
--- NOTE | 2024-12-18 10:34 | W.PN.HOSP.TC ---
Addendum entered and electronically signed by Carol Montoya MD 12/18/24 14:50:
[employer] Specialist. Dr. Ruffin,�DO
Original Note:
Today's Communication/Plan
-
await urine culture
follow Urology/nephrology recs
Assessment / Plan
Assessment / Plan
Assessment:
JACK on CKD (stage unknown)
- follows with [facility] [employer] Specialist
- Nephrology and Urology following
- CT: right ureteral and renal stone/hydronephrosis
- s/p cysto/right retrograde, right ureteral stent 12/18
- continue IVF per nephrology
- Cr improved from 2.8 down to 1.4 (unknown baseline Cr)
Essential HTN
- HCTZ and VINNIE stopped; may consider resuming VINNIE at lower dose
- continue BB
HLD
- continue atorvastatin
Dementia unknown type
Diarrhea illness
- stool samples negative
History of diabetes mellitus
- hold metformin in setting of JACK
-
- Insulin sliding scale
- Diabetic diet
- Hemoglobin A1c 6.3
Dementia unknown type
- continue donepezil
DVT ppx: Lovenox
Code: Full
Anticipated Discharge: Within 24 hours
Subjective/Interval History
-
Date of Service: December 18, 2024
resting comfortably, no complaints
Objective Data
-
Labs:
Laboratory Results
12/18/24 12/18/24
05:58 07:35
WBC Cancelled 5.7
Hgb Cancelled 10.3 L
Hct Cancelled 30.5 L
Plt Count Cancelled 216
Sodium Cancelled 141
Potassium Cancelled 4.4
Chloride Cancelled 115 H
Carbon Dioxide Cancelled 18 L
BUN Cancelled 16
Creatinine Cancelled 1.4 H
Glucose Cancelled 124 H
Calcium Cancelled 9.0
Vital Signs:
Vital Signs
Temp Pulse Resp BP Pulse Ox
98.5 F 53 16 141/53 100
12/18/24 07:33 12/18/24 09:02 12/18/24 07:33 12/18/24 09:02 12/18/24 07:33
I&O
12/17/24 12/18/24 12/19/24
06:59 06:59 06:59
Intake Total 720 / 720 580 / 580
Balance 720 / 720 580 / 580
Physical Exam
-
General: No Apparent Distress
HEENT: Normocephalic and Atraumatic
Respiratory: Negative Wheezes
Cardiac: Regular Rhythm and S1/S2
GI: Soft and Nontender
Genito-urinary: No Costovertebral Tender
Musculoskeletal: No Edema
Neuro: AO x 3
Psych: Calm
Data Reviewed
-
Total Time Spent with Patient (in minutes): 42
Labs: Labs Reviewed by me
[2024-12-18 11:02] VITALS: BMI 26.8
[2024-12-18 11:10] VITALS: BP 114/44
--- NOTE | 2024-12-18 11:52 | W.PN.NEPH.PH ---
Today's Communication / Plan
-
follow labs
Assessment/Plan
-
Impression:
JACK?
CKD
Hypertension
Diabetes
Hyperlipidemia
Dementia
Plan:
JACK/CKD new workuup
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
cortisol 8 up.cr ratio 300mg
- Urinalysis was without protein or blood, therefore not consistent with acute or chronic GN
s/p cystoscopy and stent placement 12/17
- VINNIE and hydrochlorothiazide currently held-likely resume at d/c if BP demands
follow labs in am, await U ccx
follow met acidosis likely from cl based IVF
d/w primary
-
-
Date of Service: December 18, 2024
CC / HPI / ROS
-
Chief Complaint:
JACK
History of Present Illness:
creatinine stable at 1.4
bp more stable
met acidosis at 18 with NS
Review of Systems:
subjectively non oilguriic
feels well
no cp or sob
no n/v, c/o dysuria
Labs
-
Labs:
WBC 5.7 10^3/uL (4.8-10.8) 12/18/24 07:35
RBC 3.63 10^6/uL (4.20-5.40) L 12/18/24 07:35
Hgb 10.3 g/dL (12.0-16.0) L 12/18/24 07:35
Hct 30.5 % (37.0-47.0) L 12/18/24 07:35
Plt Count 216 10^3/uL (130-400) 12/18/24 07:35
Sodium 141 mmol/L (135-145) 12/18/24 07:35
Potassium 4.4 mmol/L (3.5-5.1) 12/18/24 07:35
Chloride 115 mmol/L (98-107) H 12/18/24 07:35
Carbon Dioxide 18 mmol/L (22-30) L 12/18/24 07:35
BUN 16 mg/dl (7-17) 12/18/24 07:35
Creatinine 1.4 mg/dL (0.6-1.0) H 12/18/24 07:35
eGFR 38.03 12/18/24 07:35
Glucose 124 mg/dl (70-99) H 12/18/24 07:35
Calcium 9.0 mg/dl (8.4-10.2) 12/18/24 07:35
Albumin 4.2 g/dl (3.5-5.0) 12/14/24 21:00
Physical Exam
-
Vital Signs:
Vital Signs
Temp Pulse Resp BP Pulse Ox
98.5 F 53 16 141/53 100
12/18/24 07:33 12/18/24 09:02 12/18/24 07:33 12/18/24 09:02 12/18/24 09:05
Cardiovascular:: Regular rate and rhythm
Respiratory:: Bilateral: CTA
Lung Excursion:: Normal
Abdomen:: Nontender and Soft
Bowel Sounds:: Normal
Extremity Edema:: None: Bilateral:
Nicholson Catheter: No
[2024-12-18 11:55] LABS: Glucose - Point of Care 130 mg/dl (70-99)
[2024-12-18 15:46] VITALS: BP 126/46
--- NOTE | 2024-12-18 16:17 | CM ---
Had 2 long conversation with pt dgt about discharge plan.
PT indicates SNF.
Discussed with family and pt . Pt refused SNF several times.
Pt and Dgt Eunice decided [facility] .
[facility] does not have contract with [employer] . [facility] does not have contract.
Spoke with Leann at [facility] referral placed and Leann said they do accept [employer] . Intake will run benefits.
Eunice dgt notified of above.
Dgt will drive her home.
PLAN Home with [facility] if accepted
[2024-12-18 17:22] LABS: Glucose - Point of Care 140 mg/dl (70-99)
[2024-12-18] MEDS: LIPITOR 40 MG PO (20:51)
[2024-12-18] MEDS: ARICEPT 10 MG PO (20:51)
[2024-12-18 21:09] LABS: Glucose - Point of Care 186 mg/dl (70-99)
[2024-12-18 23:07] VITALS: BP 121/51
[2024-12-19 07:29] LABS: Glucose - Point of Care 95 mg/dl (70-99)
[2024-12-19 07:41] LABS: Blood Urea Nitrogen 23 mg/dl (7-17); Calcium 8.8 mg/dl (8.4-10.2); Carbon Dioxide 20 mmol/L (22-30); Chloride 112 mmol/L (98-107); Estimated Creatinine Clearance 25 ml/min; Glucose 105 mg/dl (70-99); Potassium 4.2 mmol/L (3.5-5.1); Sodium 139 mmol/L (135-145)
[2024-12-19 07:55] VITALS: BP 125/49
[2024-12-19] MEDS: TOPROL XL 200 MG PO (08:37)
[2024-12-19] MEDS: Pyridium 100 MG PO ×3 (08:37→23:37)
[2024-12-19] MEDS: FOLVITE 1 MG PO (08:41)
[2024-12-19 08:44] LABS: Hemoglobin 9.9 g/dL (12.0-16.0); Mean Corp Hgb Conc. 34.1 g/dL (33.0-37.0); Mean Corpuscular Hgb 28.4 pg (27.0-31.0); Mean Corpuscular Volume 83.3 fL (81.0-99.0); Mean Platelet Volume 11.7 fL (7.4-10.4); Platelet Count 227 10^3/uL (130-400); Red Blood Cell Count 3.48 10^6/uL (4.20-5.40); Red Cell Dist. Width 13.8 % (11.5-14.5); White Blood Cell Count 10.2 10^3/uL (4.8-10.8)
--- NOTE | 2024-12-19 10:10 | W.PN.HOSP.TC ---
Today's Communication/Plan
-
medically stable, pending placement
Assessment / Plan
Assessment / Plan
Assessment:
JACK on CKD (stage unknown)
- follows with [facility] [employer] Worker
- Nephrology and Urology following
- CT: right ureteral and renal stone/hydronephrosis
- s/p cysto/right retrograde, right ureteral stent 12/18
- Cr improved from 2.8 down to 1.4 (unknown baseline Cr but presumably between 1.3 and 1.7)
Essential HTN
- HCTZ and VINNIE stopped; may consider resuming VINNIE at lower dose
- continue BB
HLD
- continue atorvastatin
Diarrhea illness
- stool samples negative
History of diabetes mellitus
- hold metformin in setting of JACK; adjust dose per renal function per pharmacy
- Insulin sliding scale
- Diabetic diet
- Hemoglobin A1c 6.3
Dementia unknown type
- continue donepezil
DVT ppx: Lovenox
Code: Full
Dispo: medically stable for dc to SNF. pending bed/auth. d/w CM.
Anticipated Discharge: 24 - 48 hours
Subjective/Interval History
-
Date of Service: December 19, 2024
resting comfortably, no complaints at present
Objective Data
-
Labs:
Laboratory Results
12/19/24
06:21
WBC 10.2
Hgb 9.9 L
Hct 29.0 L
Plt Count 227
Sodium 139
Potassium 4.2
Chloride 112 H
Carbon Dioxide 20 L
BUN 23 H
Creatinine 1.6 H
Glucose 105 H
Calcium 8.8
Vital Signs:
Vital Signs
Temp Pulse Resp BP Pulse Ox
98.4 F 57 14 139/52 97
12/19/24 07:55 12/19/24 08:37 12/19/24 07:55 12/19/24 08:37 12/19/24 07:55
I&O
12/18/24 12/19/24 12/20/24
06:59 06:59 06:59
Intake Total 580 / 580 600 / 600
Balance 580 / 580 600 / 600
Physical Exam
-
General: No Apparent Distress
HEENT: Normocephalic and Atraumatic
Respiratory: Negative Wheezes
Cardiac: Regular Rhythm and S1/S2
GI: Soft
Genito-urinary: No Costovertebral Tender
Neuro: AO x 3
Psych: Calm
Data Reviewed
-
Total Time Spent with Patient (in minutes): 41
Labs: Labs Reviewed by me
[2024-12-19] MEDS: GLUCOPHAGE 500 MG PO ×2 (11:24→16:19)
[2024-12-19] MEDS: IMODIUM 2 MG PO (12:36)
[2024-12-19 12:41] LABS: Glucose - Point of Care 99 mg/dl (70-99)
--- NOTE | 2024-12-19 13:41 | CM ---
Discharge POC: Therapy recommendation for SNF. Initially patient did not want SNF but after conference call with attending, patient and daughter, she did agree. Referrals forwarded. Preference is [place]. Liaison notified and is checking bed
availability. Will need insurance auth when bed available.
--- NOTE | 2024-12-19 13:43 | W.PN.NEPH.PH ---
Today's Communication / Plan
-
follow labs
Assessment/Plan
-
Impression:
JACK?
CKD
Hypertension
Diabetes
Hyperlipidemia
Dementia
Plan:
JACK/CKD new workup
cr up trending to 1.6, no clear baseline available, cr better than admit
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
?UTI sample, U PCR only 300mg
- Urinalysis was without protein or blood, therefore not consistent with acute or chronic GN
VINNIE and hydrochlorothiazide remains on hold as BP are stable
met acidosis improving
follow h/h and BMP
d/w primary
-
-
Date of Service: December 19, 2024
CC / HPI / ROS
-
Chief Complaint:
JACK
History of Present Illness:
creatinine slightly up at 1.6
bp more stable
met acidosis at 20 off NS
Review of Systems:
subjectively non oilguriic
diarrhea today, took imodium
no cp or sob
no n/v
Labs
-
Labs:
WBC 10.2 10^3/uL (4.8-10.8) 12/19/24 06:21
RBC 3.48 10^6/uL (4.20-5.40) L 12/19/24 06:21
Hgb 9.9 g/dL (12.0-16.0) L 12/19/24 06:21
Hct 29.0 % (37.0-47.0) L 12/19/24 06:21
Plt Count 227 10^3/uL (130-400) 12/19/24 06:21
Sodium 139 mmol/L (135-145) 12/19/24 06:21
Potassium 4.2 mmol/L (3.5-5.1) 12/19/24 06:21
Chloride 112 mmol/L (98-107) H 12/19/24 06:21
Carbon Dioxide 20 mmol/L (22-30) L 12/19/24 06:21
BUN 23 mg/dl (7-17) H 12/19/24 06:21
Creatinine 1.6 mg/dL (0.6-1.0) H 12/19/24 06:21
eGFR 32.40 12/19/24 06:21
Glucose 105 mg/dl (70-99) H 12/19/24 06:21
Calcium 8.8 mg/dl (8.4-10.2) 12/19/24 06:21
Albumin 4.2 g/dl (3.5-5.0) 12/14/24 21:00
Physical Exam
-
Vital Signs:
Vital Signs
Temp Pulse Resp BP Pulse Ox
98.4 F 57 14 139/52 97
12/19/24 07:55 12/19/24 08:37 12/19/24 07:55 12/19/24 08:37 12/19/24 08:50
Cardiovascular:: Regular rate and rhythm
Respiratory:: Bilateral: CTA
Lung Excursion:: Normal
Abdomen:: Nontender and Soft
Bowel Sounds:: Normal
Extremity Edema:: None: Bilateral:
Nicholson Catheter: No
[2024-12-19 15:55] VITALS: BP 111/40
[2024-12-19 17:32] LABS: Glucose - Point of Care 106 mg/dl (70-99)
[2024-12-19] MEDS: LIPITOR 40 MG PO (21:05)
[2024-12-19] MEDS: ARICEPT 10 MG PO (21:05)
[2024-12-19 21:54] LABS: Glucose - Point of Care 102 mg/dl (70-99)
[2024-12-19 23:30] VITALS: BP 122/57
--- NOTE | 2024-12-20 04:21 | DOWNTIME ---
Addendum entered by Stefania Varela RN 12/20/24 14:17:
Correction: Downtime was 12/20/2024 from 0100 to 12/20/2024 at 0415
Original Note:
There was a [employer] Client Line Installation Supervisor Downtime on 12/19/2024 from 0100 to 12/20/2024 at 0415. Downtime documentation of patient's care, including medication administrations, has been reconciled in the electronic record per guidelines. Refer to the
patient's paper chart under the miscellaneous tab to see printed paper medication records and downtime forms.
[2024-12-20 07:38] LABS: Blood Urea Nitrogen 20 mg/dl (7-17); Calcium 8.9 mg/dl (8.4-10.2); Carbon Dioxide 19 mmol/L (22-30); Chloride 116 mmol/L (98-107); Estimated Creatinine Clearance 29 ml/min; Glucose 91 mg/dl (70-99); Potassium 4.5 mmol/L (3.5-5.1); Sodium 141 mmol/L (135-145); eGFR 38.03
[2024-12-20 07:55] LABS: Glucose - Point of Care 91 mg/dl (70-99)
[2024-12-20 07:59] VITALS: BP 109/49
[2024-12-20] MEDS: Pyridium 100 MG PO ×2 (08:16→16:32)
[2024-12-20] MEDS: GLUCOPHAGE 500 MG PO ×2 (08:16→16:32)
[2024-12-20] MEDS: FOLVITE 1 MG PO (08:16)
[2024-12-20] MEDS: TOPROL XL 200 MG PO (08:16)
[2024-12-20 08:20] LABS: Hematocrit 30.4 % (37.0-47.0); Hemoglobin 10.2 g/dL (12.0-16.0); Mean Corp Hgb Conc. 33.6 g/dL (33.0-37.0); Mean Corpuscular Hgb 28.7 pg (27.0-31.0); Mean Corpuscular Volume 85.4 fL (81.0-99.0); Mean Platelet Volume 11.4 fL (7.4-10.4); Platelet Count 194 10^3/uL (130-400); Red Blood Cell Count 3.56 10^6/uL (4.20-5.40); White Blood Cell Count 8.7 10^3/uL (4.8-10.8)
--- NOTE | 2024-12-20 10:04 | W.PN.HOSP.TC ---
Today's Communication/Plan
-
possible DC to SNF today if bed/auth obtained
Assessment / Plan
Assessment / Plan
Assessment:
JACK on CKD (stage unknown)
- follows with [facility] Supervisor Detasseling Crew
- Nephrology and Urology following
- CT: right ureteral and renal stone/hydronephrosis
- s/p cysto/right retrograde, right ureteral stent 12/18
- Cr improved from 2.8 down to 1.4 (unknown baseline Cr but presumably between 1.3 and 1.7)
Essential HTN
- HCTZ and VINNIE stopped; may consider resuming VINNIE at lower dose if BP elevated at SNF
- continue BB
HLD
- continue atorvastatin
Diarrhea illness
- stool samples negative
- prn Imodium
History of diabetes mellitus
- continue renally dosed Metformin
- Insulin sliding scale
- Diabetic diet
- Hemoglobin A1c 6.3
Dementia unknown type
- continue donepezil
DVT ppx: Lovenox
Code: Full
Dispo: medically stable for dc to SNF. pending bed/auth. d/w CM.
Anticipated Discharge: Within 24 hours
Subjective/Interval History
-
Date of Service: December 20, 2024
resting comfortably, no complaints
Objective Data
-
Labs:
Laboratory Results
12/20/24 12/20/24
06:00 07:52
WBC Cancelled 8.7
Hgb Cancelled 10.2 L
Hct Cancelled 30.4 L
Plt Count Cancelled 194
Sodium 141
Potassium 4.5
Chloride 116 H
Carbon Dioxide 19 L
BUN 20 H
Creatinine 1.4 H
Glucose 91
Calcium 8.9
Vital Signs:
Vital Signs
Temp Pulse Resp BP Pulse Ox
97.9 F 62 16 109/49 99
12/20/24 07:59 12/20/24 08:16 12/20/24 07:59 12/20/24 08:16 12/20/24 07:59
I&O
12/19/24 12/20/24 12/21/24
06:59 06:59 06:59
Intake Total 600 / 600 1440 / 1440
Balance 600 / 600 1440 / 1440
Physical Exam
-
General: No Apparent Distress
HEENT: Normocephalic and Atraumatic
Respiratory: Negative Wheezes
Cardiac: Regular Rhythm and S1/S2
GI: Soft
Genito-urinary: No Costovertebral Tender
Musculoskeletal: No Edema
Neuro: AO x 3
Psych: Calm
Data Reviewed
-
Total Time Spent with Patient (in minutes): 41
Labs: Labs Reviewed by me
--- NOTE | 2024-12-20 10:37 | CM ---
Pt consented to SNF.
Spoke with dgt Eunice she said they wanted [place].
Checked with Ofelia she said bed available NPI number given .
Called [phone] [facility] spoke with Fatimah clinical Reference #[id number] clinical faxed to [phone] Awaiting determination.
Family unsure of transportation mode.
[facility]
report [phone]
fax [phone]
PLAN To [facility] after auth obtained
[2024-12-20 12:12] LABS: Glucose - Point of Care 92 mg/dl (70-99)
--- NOTE | 2024-12-20 12:33 | W.PN.NEPH.PH ---
Today's Communication / Plan
-
Add sodium bicarb and
Follow BMP
Stable for discharge pending placement
Assessment/Plan
-
Impression:
JACK?
CKD
Hypertension
Diabetes
Hyperlipidemia
Dementia
Plan:
JACK/CKD new workup
cr down to 1.4 which appears to be baseline
I will add sodium bicarbonate 650 mg p.o. 3 times daily for persistent metabolic acidosis likely a consequence of diarrhea losses and CKD
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
?UTI sample, U PCR only 300mg
-Urinalysis was without protein or blood, therefore not consistent with acute or chronic GN
VINNIE and hydrochlorothiazide remains on hold as BP are stable if not low side
-
-
Date of Service: December 20, 2024
CC / HPI / ROS
-
Chief Complaint:
JACK
History of Present Illness:
creatinine slightly improved to 1.4
bp more stable
met acidosis at 19 off NS
Review of Systems:
subjectively non oilguriic
diarrhea today, took imodium
no cp or sob
no n/v
Labs
-
Labs:
WBC 8.7 10^3/uL (4.8-10.8) 12/20/24 07:52
RBC 3.56 10^6/uL (4.20-5.40) L 12/20/24 07:52
Hgb 10.2 g/dL (12.0-16.0) L 12/20/24 07:52
Hct 30.4 % (37.0-47.0) L 12/20/24 07:52
Plt Count 194 10^3/uL (130-400) 12/20/24 07:52
Sodium 141 mmol/L (135-145) 06/18/25 06:00
Potassium 4.5 mmol/L (3.5-5.1) 12/20/24 06:00
Chloride 116 mmol/L (98-107) H 12/20/24 06:00
Carbon Dioxide 19 mmol/L (22-30) L 12/20/24 06:00
BUN 20 mg/dl (7-17) H 12/20/24 06:00
Creatinine 1.4 mg/dL (0.6-1.0) H 12/20/24 06:00
eGFR 38.03 12/20/24 06:00
Glucose 91 mg/dl (70-99) 12/20/24 06:00
Calcium 8.9 mg/dl (8.4-10.2) 12/20/24 06:00
Albumin 4.2 g/dl (3.5-5.0) 12/14/24 21:00
Physical Exam
-
Vital Signs:
Vital Signs
Temp Pulse Resp BP Pulse Ox
97.9 F 62 16 109/49 99
12/20/24 07:59 12/20/24 08:16 12/20/24 07:59 12/20/24 08:16 12/20/24 08:50
Cardiovascular:: Regular rate and rhythm
Respiratory:: Bilateral: CTA
Lung Excursion:: Normal
Abdomen:: Nontender and Soft
Bowel Sounds:: Normal
Extremity Edema:: None: Bilateral:
Nicholson Catheter: No
[2024-12-20 16:03] VITALS: BP 117/48
[2024-12-20] MEDS: SODIUM BICARBONATE 650 MG PO ×2 (16:32→21:46)
[2024-12-20 16:56] LABS: Glucose - Point of Care 118 mg/dl (70-99)
[2024-12-20 20:53] LABS: Alpha 1 Globulin 0.34 g/dL (0.19-0.46); Alpha 2 Globulin 0.77 g/dL (0.48-1.05); SPEP IFE Reflex Not Done; Total Protein-Electrophoresis 6.1 g/dL (6.3-8.2)
[2024-12-20 21:22] LABS: Glucose - Point of Care 120 mg/dl (70-99)
[2024-12-20] MEDS: ARICEPT 10 MG PO (21:45)
[2024-12-20] MEDS: LIPITOR 40 MG PO (21:45)
[2024-12-20 23:25] VITALS: BP 109/67
[2024-12-21] MEDS: Pyridium 100 MG PO ×2 (01:22→09:36)
[2024-12-21 07:21] VITALS: BP 150/57
[2024-12-21 08:03] LABS: Glucose - Point of Care 96 mg/dl (70-99)
[2024-12-21 08:58] LABS: Blood Urea Nitrogen 19 mg/dl (7-17); Calcium 9.3 mg/dl (8.4-10.2); Carbon Dioxide 24 mmol/L (22-30); Chloride 113 mmol/L (98-107); Estimated Creatinine Clearance 31 ml/min; Glucose 95 mg/dl (70-99); Potassium 4.3 mmol/L (3.5-5.1); Sodium 142 mmol/L (135-145); eGFR 41.57
[2024-12-21] MEDS: FOLVITE 1 MG PO (09:36)
[2024-12-21] MEDS: SODIUM BICARBONATE 650 MG PO (09:36)
[2024-12-21] MEDS: GLUCOPHAGE 500 MG PO (09:36)
[2024-12-21] MEDS: TOPROL XL 200 MG PO (09:36)
--- NOTE | 2024-12-21 10:49 | CM ---
Auth submitted to [facility] clinical Reference #[id number] clinical faxed to [phone]
This am received call spoke with Alana Penny and Zulay from [facility] case sent to peer to peer [phone] Iriz[address] and [address] Montoya notified of Peer to peer.
Spoke with dgt Eunice she is aware of peer to peer for SNf . Pts PT eval has improved.
Eunice dht said no need to Peer to peer . She will drive pt home and take FMLA to assist her.
Spoke with [facility]rell referral updated Pt accepted by [facility] Dgt aware.
PLAN Home with [facility] fax [phone]
--- NOTE | 2024-12-21 11:07 | W.PN.HOSP.TC ---
Today's Communication/Plan
-
dc home/VN
Assessment / Plan
Assessment / Plan
Assessment:
JACK on CKD (stage unknown)
- follows with [facility] Environmental Conflict Manager
- Nephrology and Urology following
- CT: right ureteral and renal stone/hydronephrosis
- s/p cysto/right retrograde, right ureteral stent 12/18
- Cr improved from 2.8 down to 1.3 (unknown baseline Cr but presumably between 1.3 and 1.7)
Essential HTN
- HCTZ and VINNIE stopped;
- resume Lisinopril at 20mg daily
- continue BB
HLD
- continue atorvastatin
Diarrhea illness
- stool samples negative
- prn Imodium
History of diabetes mellitus
- continue renally dosed Metformin
- Insulin sliding scale
- Diabetic diet
- Hemoglobin A1c 6.3
Dementia unknown type
- continue donepezil
DVT ppx: Lovenox
Code: Full
Dispo: home/VN today
More than 30 minutes spent in discharge including
Final examination of the patient
Summarizing hospital stay
Instructions for continuing care to all relevant caregivers
Preparation of discharge records, prescriptions, and referral forms
Total time spent (in minutes):41
Anticipated Discharge: Today
Subjective/Interval History
-
Date of Service: December 21, 2024
denies any new complaints
Objective Data
-
Labs:
Laboratory Results
12/21/24
07:10
Sodium 142
Potassium 4.3
Chloride 113 H
Carbon Dioxide 24
BUN 19 H
Creatinine 1.3 H
Glucose 95
Calcium 9.3
Vital Signs:
Vital Signs
Temp Pulse Resp BP Pulse Ox
97.9 F 58 18 150/57 98
12/21/24 07:21 12/21/24 09:36 12/21/24 07:21 12/21/24 09:36 12/21/24 07:21
I&O
12/20/24 12/21/24 12/22/24
06:59 06:59 06:59
Intake Total 1440 / 1440
Balance 1440 / 1440
Physical Exam
-
General: No Apparent Distress
HEENT: Normocephalic and Atraumatic
Respiratory: Clear to Auscultation; Negative Wheezes
Cardiac: Regular Rhythm and S1/S2
GI: Soft
Genito-urinary: No Costovertebral Tender
Musculoskeletal: No Edema
Neuro: AO x 3
Psych: Calm
Data Reviewed
-
Total Time Spent with Patient (in minutes): 42
Labs: Labs Reviewed by me
--- NOTE | 2024-12-21 11:16 | W.DS.TRANS ---
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
-
Discharge Instructions:
Discharge Diagnosis/Procedures JACK from deyhdration and obstructive renal stone
s/p stenting 12/17
Diet Regular
Activity As tolerated
Bathing Restrictions None
Blood Work CBC and BMP in 1 week - script given
Other Services PT,OT,VN
Instructions:
Stand-Alone Forms:
Changes to Home Medications: Yes
Discharge Medications:
DC Medications w/original date entered in [employer]
donepezil 10 mg tablet (Aricept) 10 mg PO HS 12/14/24
ergocalciferol (vitamin D2) 25,000 unit capsule 50,000 unit PO WEEKLY 12/14/24
folic acid 1 mg tablet 1 mg PO DAILY 12/14/24
metoprolol succinate 200 mg tablet,extended release 24 hr 200 mg PO DAILY 12/14/24
atorvastatin 20 mg tablet 40 mg (2 x 20 mg) PO HS #60 tabs 12/20/24
metformin 500 mg tablet 500 mg PO BID@0800,1700 #60 tabs 12/20/24
phenazopyridine 100 mg tablet 100 mg PO Q8 PRN Pain #20 tabs 12/20/24
sodium bicarbonate 650 mg tablet 650 mg PO TID #90 tabs 12/20/24
lisinopril 20 mg tablet 20 mg PO DAILY #30 tabs 12/21/24
Home Medication Changes
VINNIE reduced
Metformin to BID
Statin added
Sodium bicarb added
Pending Results: No
Total time spent discharging patient (in min): 41
--- NOTE | 2024-12-21 11:48 | W.PN.NEPH.PH ---
Today's Communication / Plan
-
Stable for discharge
We will follow-up as outpatient
Assessment/Plan
-
Impression:
JACK?
CKD
Hypertension
Diabetes
Hyperlipidemia
Dementia
Plan:
JACK/CKD new workup
cr down to 1.3 which appears to be baseline
I will add sodium bicarbonate 650 mg p.o. 3 times daily for persistent metabolic acidosis likely a consequence of diarrhea losses and CKD
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
?UTI sample, U PCR only 300mg
-Urinalysis was without protein or blood, therefore not consistent with acute or chronic GN
VINNIE and hydrochlorothiazide remains on hold as BP are stable if not low side
We will follow-up as outpatient
-
-
Date of Service: December 21, 2024
CC / HPI / ROS
-
Chief Complaint:
JACK
History of Present Illness:
creatinine slightly improved to 1.3
bp more stable and now up
Review of Systems:
subjectively non oilguriic
diarrhea today, took imodium
no cp or sob
no n/v
Labs
-
Labs:
WBC 8.7 10^3/uL (4.8-10.8) 12/20/24 07:52
RBC 3.56 10^6/uL (4.20-5.40) L 12/20/24 07:52
Hgb 10.2 g/dL (12.0-16.0) L 12/20/24 07:52
Hct 30.4 % (37.0-47.0) L 12/20/24 07:52
Plt Count 194 10^3/uL (130-400) 12/20/24 07:52
Sodium 142 mmol/L (135-145) 12/21/24 07:10
Potassium 4.3 mmol/L (3.5-5.1) 12/21/24 07:10
Chloride 113 mmol/L (98-107) H 12/21/24 07:10
Carbon Dioxide 24 mmol/L (22-30) 12/21/24 07:10
BUN 19 mg/dl (7-17) H 12/21/24 07:10
Creatinine 1.3 mg/dL (0.6-1.0) H 12/21/24 07:10
eGFR 41.57 12/21/24 07:10
Glucose 95 mg/dl (70-99) 12/21/24 07:10
Calcium 9.3 mg/dl (8.4-10.2) 12/21/24 07:10
Albumin 4.2 g/dl (3.5-5.0) 12/14/24 21:00
Physical Exam
-
Vital Signs:
Vital Signs
Temp Pulse Resp BP Pulse Ox
97.9 F 58 18 150/57 98
12/21/24 07:21 12/21/24 09:36 12/21/24 07:21 12/21/24 09:36 12/21/24 07:21
Cardiovascular:: Regular rate and rhythm
Respiratory:: Bilateral: CTA
Lung Excursion:: Normal
Abdomen:: Nontender and Soft
Bowel Sounds:: Normal
Extremity Edema:: None: Bilateral:
Nicholson Catheter: No
[2024-12-21 11:57] VITALS: BP 140/51
[2024-12-21 12:41] LABS: Glucose - Point of Care 122 mg/dl (70-99)
== END 2024-12-21 14:11 | disposition home health service (06) | DRG 660 ==
LOC: 4 EAST ACU 23:52
PROVIDERS: General Practice; Nurse Practitioner Family; Physician Assistant; ADMITTING PHYSICIAN Internal Medicine; ATTENDING PHYSICIAN Internal Medicine; CONSULT PHYSICIAN Specialist; EMERGENCY PHYSICIAN Student in an Organized Health Care Education/Training Program; FAMILY PHYSICIAN Family Medicine
PROC: 0T768DZ Dilation of Right Ureter with Intraluminal Device, Via Natural or Artificial Opening Endoscopic (ICD-10-PCS; 2024-12-17)
DX: N13.2 Hydronephrosis with renal and ureteral calculous obstruction (principal); E87.20 Acidosis, unspecified; N17.9 Acute kidney failure, unspecified; I12.9 Hypertensive chronic kidney disease with stage 1 through stage 4 chronic kidney disease, or unspecified chronic kidney disease; N18.9 Chronic kidney disease, unspecified; E11.22 Type 2 diabetes mellitus with diabetic chronic kidney disease; E78.5 Hyperlipidemia, unspecified; F03.90 Unspecified dementia, unspecified severity, without behavioral disturbance, psychotic disturbance, mood disturbance, and anxiety; E86.0 Dehydration; Z79.899 Other long term (current) drug therapy
CPT/HCPCS: 74176; 74420; 76000; 80048; 80053; 81003; 81015; 82533; 82570; 82962; 83036; 84155; 84156; 84165; 84300; 85025; 85027; 87045; 87046; 87077; 87086; 87324; 87427; 87449; 89055; 96360; 97116; 97163; 97166; 97530; 97535; 99285; C2617

== ENCOUNTER 2025-01-12 06:10 | Day surgery (SDC) | payer OTHER, SELFPAY ==
[2025-01-12] VITALS (10 sets, daily range): BP systolic 102–166; BP diastolic 60–93; BMI 26.4
[2025-01-12] MEDS: NORMOSOL-R/PLASMALYTE-A 1000 IV (07:33)
[2025-01-12] MEDS: VANCOCIN 200 IV (07:33)
[2025-01-12 07:37] LABS: Glucose - Point of Care 103 mg/dl (70-99)
[2025-01-12 09:31] LABS: Glucose - Point of Care 131 mg/dl (70-99)
[2025-01-12] MEDS: DETROL LA 4 MG PO (10:03)
== END 2025-01-12 11:20 | disposition home or self-care (01) ==
LOC: SDS 06:10
PROVIDERS: ATTENDING PHYSICIAN Specialist; FAMILY PHYSICIAN Family Medicine
DX: N20.2 Calculus of kidney with calculus of ureter (principal)
CPT/HCPCS: 52356; 52352; 74018; 76000; 82365; 82962; 87086; C1894; C2617

== ENCOUNTER 2025-04-12 06:11 | Day surgery (SDC) | payer OTHER, SELFPAY ==
[2025-04-02 14:10] VITALS: BMI 20.7
[2025-04-02 14:45] LABS: Hematocrit 31.5 % (37.0-47.0); Hemoglobin 10.0 g/dL (12.0-16.0); Mean Corp Hgb Conc. 31.7 g/dL (33.0-37.0); Mean Corpuscular Volume 85.8 fL (81.0-99.0); Platelet Count 271 10^3/uL (130-400); Red Cell Dist. Width 15.0 % (11.5-14.5)
[2025-04-12] VITALS (11 sets, daily range): BP systolic 118–150; BP diastolic 51–95; BMI 20.7
[2025-04-12 08:47] LABS: Glucose - Point of Care 94 mg/dl (70-99)
[2025-04-12] MEDS: NORMOSOL-R/PLASMALYTE-A 1000 IV (09:10)
[2025-04-12 10:50] LABS: Glucose - Point of Care 112 mg/dl (70-99)
[2025-04-12] MEDS: DETROL LA 4 MG PO (11:49)
== END 2025-04-12 12:54 | disposition home or self-care (01) ==
LOC: SDS 06:11
PROVIDERS: ATTENDING PHYSICIAN Specialist; FAMILY PHYSICIAN Family Medicine
DX: N20.0 Calculus of kidney (principal)
CPT/HCPCS: 52356; 36415; 74018; 76000; 82962; 85027; 87086; 93005; C1894; C2617; J1580

== ENCOUNTER 2025-04-17 22:35 | Inpatient (IN) | payer OTHER, SELFPAY ==
[2025-04-17 18:23] VITALS: BP 162/88
--- NOTE | 2025-04-17 19:36 | ED.GENMED ---
History of Present Illness
General
Chief Complaint: Post Operative Problem(s)
Source: patient
Exam Limitations: none
Time Seen by Provider: 04/17/25 19:15
Nursing documentation reviewed up to this point in time: agreed with
History of Present Illness
History of Present Illness:
The patient is an 80-year-old female with a past medical history of dementia who presents with left flank pain, nausea and decreased appetite. Patient underwent a lithotripsy and ureteral stent placed on the left side by Dr. Joaquin 5 days ago. Her
daughter reports she initially seemed fine but over the last 2 days seems to be complaining of pain and nausea. Patient's daughter reports she took Tylenol at 3 PM today for pain. They deny any fever, chills and vomiting.
Past History
Past History
ED Past Medical History: HTN, NIDDM and Other (Dementia)
ED Past Surgical History: Urological
Social History
Tobacco: Non-smoker
Alcohol: None
Drug: None
Personal: Other
Living: with family
Employment: Other
Family History
Family History: Other
Review of Systems
Review of Systems
Allergies reviewed?: Yes
Unable to obtain full review of systems at this time due to: dementia
Other source history: family
Constitutional: Reports no symptoms
EENT: Reports no symptoms
Respiratory: Reports no symptoms
Cardiac: Reports no symptoms
ABD/GI: Reports nausea and anorexia
: Reports flank pain
Musculoskeletal: Reports no symptoms
Skin: Reports no symptoms
Neurological: Reports no symptoms
Endocrine: Reports no symptoms
Hematologic/Lymphatic: Reports no symptoms
Psychiatric: Reports no symptoms
Phy Exam
Physical Exam
Physical Exam:
Physical Exam
General: no apparent distress, not acutely ill
Neck: supple. no meningeal signs. normal psoterior pharynx
Heart: s1/s2 regular rate and rhythm, no murmur. equal radial pulses.
Lungs: no acute respiratory distress. clear bilaterally
Abdomen: Left flank tenderness. Soft throughout. No pulsatile mass
Neuro: alert and oriented. no focal neurological deficits
Skin: no rash
Psychiatric: well kept. interactive and cooperative
Extremities: no edema. no calf tenderness. negative homans. good distal pulses
Course
Orders/Labs/Results
Orders:
Orders
04/17/25 19:30
Urinalysis Reflex To Culture Urgent
Date Specimen was Collected: 04/17/25
Time Specimen was Collected: 21:54
04/17/25 19:31
0.9% Sodium Chloride 500 ml [Nss] 500 ml IV BOLUS
04/17/25 19:46
CT Abd/pel Without Iv Or Oral Urgent
Comment:
Reason For Exam: L flank pain
04/17/25 19:59
Complete Blood Count/With Diff Urgent
Comprehensive Metabolic Panel Urgent
Abnormal Lab Results
04/17/25
19:59
RBC 3.61 L 10^6/uL
(4.20-5.40)
Hgb 9.8 L g/dL
(12.0-16.0)
Hct 30.2 L %
(37.0-47.0)
MCHC 32.5 L g/dL
(33.0-37.0)
RDW 15.0 H %
(11.5-14.5)
Absolute Monos (auto) 0.7 H 10^3/uL
(0.1-0.6)
Lymphocytes % 19.5 L %
(20.5-51.1)
BUN 30 H mg/dl
(7-17)
Creatinine 1.5 H mg/dL
(0.6-1.0)
04/17/25 19:59
04/17/25 19:59
Vital Signs
Initial and Last Documented VS:
Initial Vital Signs
Temp Pulse Resp BP Pulse Ox
98.4 F 71 16 162/88 97
04/17/25 18:23 04/17/25 18:23 04/17/25 18:23 04/17/25 18:23 04/17/25 18:23
Last Documented Vital Signs
Temp Pulse Resp BP Pulse Ox
98.4 F 71 16 162/88 97
04/17/25 18:23 04/17/25 18:23 04/17/25 18:23 04/17/25 18:23 04/17/25 19:38
MDM/Problems Addressed
Differential Diagnosis Includes:
post-Operative pain, pyelonephritis, renal hematoma
MDM/Problems Addressed:
Patient presents with acute flank pain and nausea after ureteral stent
Chronic conditions affecting care: HTN
Acute Exacerbation and/or Progression of Chronic Illness:
Patient is acutely hypertensive, likely due to discomfort or anxiety
Acute Exacerbation and/or Progression of Chronic Illness: HTN
*Radiology
Radiology exam reviewed: radiology read reviewed
*Pulse Oximetry
SaO2: 97
Oxygen Mode of Delivery: Room air
Patient hypoxic: no
*EKG
Interpreted by ED Provider?: NA
*Aerial Installer Interpretation
Rate: Aerial Installer- N/A
*Critical Care Note
Total Time (30-74mins, 75-104mins- exclusive of procedures): Not Applicable
Data Reviewed
Review of Other/Old Records Reveals: Operative Reports (Operative note from Dr. Joaquin reviewed from 04/12/2025)
Source: patient and family
Patient Management
Discussion with other providers: Hospitalist and Other (Dr. Gay came to evaluate patient at bedside. [place] patient should be admitted to make sure that there is no sign of infection)
ED Attending Note
-
Portions of this chart may have been created with voice recognition software.� Occasional wrong word or��sound alike� substitutions may have occurred due to the inherent limitations of voice recognition software.
Discharge Plan
Departure
Patient Disposition: Admit
Date of Disposition: 04/17/25
Time of Disposition: 21:18
Admit to: Med/Surg
Presentation/result/management discussed w/ accepting MD/DO: Hospitalist
Patient with high blood pressure during this ER visit?: Yes
Condition: Good
Discharge Problem:
Renal colic on left side
Prescriptions:
No Action
donepezil [Aricept] 10 mg Tablet
10 mg PO HS
metoprolol succinate 200 mg Tablet Extended Release 24 Hr
200 mg PO DAILY
folic acid 1 mg Tablet
1 mg PO DAILY
metformin 500 mg Tablet
500 mg PO BID@0800,1700 Qty: 60 0RF
atorvastatin 20 mg Tablet
40 mg PO HS Qty: 60 0RF
sodium bicarbonate 650 mg Tablet
650 mg PO TID Qty: 90 0RF
lisinopril 20 mg tablet
20 mg PO DAILY Qty: 30 0RF
cholecalciferol (vitamin D3) [Vitamin D3] 125 mcg (5,000 unit) Tablet
1,250 mcg PO FR
Referrals:
Agustin Hearn DO [Family Provider, Family Practice]
Interventions
Interventions:
*Risk Screen - Suicide Last Done: 04/17/25 18:23
*General Assessment Last Done: 04/17/25 21:36
*Neglect/Abuse Screening Last Done: 04/17/25 18:23
*ED- Fall Risk Assessment Last Done: 04/17/25 21:36
*ED COVID-19 Vaccine History Last Done: 04/17/25 21:36
*ED Influenza Vaccine History Last Done: 04/17/25 21:36
Discharge Date and Time
Print Language: ICELANDIC
[2025-04-17] MEDS: NSS 500 IV (20:10)
[2025-04-17 20:15] LABS: Hematocrit 30.2 % (37.0-47.0); Hemoglobin 9.8 g/dL (12.0-16.0); Mean Corp Hgb Conc. 32.5 g/dL (33.0-37.0); Mean Corpuscular Volume 83.7 fL (81.0-99.0); Nucleated Red Blood Cells % 0 %; Platelet Count 249 10^3/uL (130-400); Red Cell Dist. Width 15.0 % (11.5-14.5)
[2025-04-17 20:36] LABS: ALT (SGPT) 17 U/L (0-35); AST (SGOT) 21 U/L (14-36); Albumin 3.7 g/dl (3.5-5.0); Alkaline Phosphatase 101 U/L (38-126); Blood Urea Nitrogen 30 mg/dl (7-17); Calcium 9.9 mg/dl (8.4-10.2); Carbon Dioxide 29 mmol/L (22-30); Chloride 103 mmol/L (98-107); Glucose 88 mg/dl (70-99); Potassium 4.3 mmol/L (3.5-5.1); Sodium 140 mmol/L (135-145); Total Protein 6.5 g/dl (6.3-8.2); eGFR 34.79
--- NOTE | 2025-04-17 20:54 | W.PN.URO.CBU ---
Today's Communication / Plan
-
ivf t]flomax strain urine
Assessment / Plan
-
trial of pasage rt uretal stones but stenting if becomes unstable trial of passage today
Diagnosis
-
Date of Service: April 17, 2025
-
Patient Diagnosis:s/p left laser now discofort ands new rt hysdtreo and 2 stones equal to 7mm diastal rt ureter
Post Op Day:
Subjective
-
low back pain
Objective
-
Vital Signs
Temp Pulse Resp BP Pulse Ox
98.4 F 71 16 162/88 97
04/17/25 18:23 04/17/25 18:23 04/17/25 18:23 04/17/25 18:23 04/17/25 19:38
Laboratory Results
04/17/25 19:59
04/17/25 19:59
Review of Systems
-
: Flank Pain
Physical Exam
-
General - well developed, well nourished, no acute distress
Chest - clear bilaterally
Abdomen - soft, non-tender, positive bowel sounds, no CVAT, no incisional pain or distention
Genitalia - normal
Rectal - normal
Skin - warm & dry with no rash
Neuro - AOx3, no motor deficits
Extremities - no clubbing, no cyanosis, no edema
Incision - clean, dry
Dressing - clean, dry, intact
Care Review
Data Reviewed
Discussed with: Hospitalist and Nursing
--- NOTE | 2025-04-17 21:15 | HPS.HSE ---
Family Physician
-
Family Physician: Agustin Hearn
Chief Complaint
-
left flank pain, nausea and decreased appetite
History of Present Illness
Patient is a 80-year-old female with past medical history significant for hypertension, hyperlipidemia, type 2 diabetes, dementia and Hx kidney stones who presented to [facility] ED for evaluation of left flank pain, nausea and decreased appetite.
Patient underwent a lithotripsy and ureteral stent placed on the left side by Dr. Joaquin 5 days ago. Patient has overall felt well post stent placement until 2 days ago when she started with left sided flank pain, nausea and decreased appetite.
Denies any fevers, chills, vomiting, diarrhea or urinary symptoms.
Medical History
Past Medical History
Past Medical History: Reports Other
Additional Past Medical History:
hypertension
hyperlipidemia
type 2 diabetes
dementia
Hx kidney stones
Past Surgical History: Reports Other
Additional Past Surgical History:
cholecystectomy 1996
tonsillectomy
Social History
Unable to obtain full social history at this time due to: Dementia
Tobacco: Non-smoker
Alcohol: None
Drug: None
Personal:
Living: With Family
Family History
Family History: Other (Mother: HTN, uterine cancer; Father: CVA)
Allergies / Home Medications
Allergies reflects when Allergies were last updated in [email or web address].
Home Medications with original date entered in [email or web address]
Allergy/Medication List:
Allergies
Allergy/AdvReac Type Severity Reaction Status Date / Time
amlodipine Allergy Unknown Verified 04/12/25 08:47
cephalexin Allergy Unknown Verified 04/12/25 08:47
ciprofloxacin (From Cipro) Allergy Unknown Verified 04/12/25 08:47
levofloxacin Allergy Unknown Verified 04/12/25 08:47
Penicillins Allergy Unknown Verified 04/12/25 08:47
Sulfa (Sulfonamide Allergy Unknown Verified 04/12/25 08:47
Antibiotics)
Home Medications
donepezil 10 mg tablet (Aricept) 10 mg PO HS 12/14/24
folic acid 1 mg tablet 1 mg PO DAILY 12/14/24
metoprolol succinate 200 mg tablet,extended release 24 hr 200 mg PO DAILY 12/14/24
atorvastatin 20 mg tablet 40 mg (2 x 20 mg) PO HS #60 tabs 12/20/24
metformin 500 mg tablet 500 mg PO BID@0800,1700 #60 tabs 12/20/24
sodium bicarbonate 650 mg tablet 650 mg PO TID #90 tabs 12/20/24
lisinopril 20 mg tablet 20 mg PO DAILY #30 tabs 12/21/24
cholecalciferol (vitamin D3) 125 mcg (5,000 unit) tablet (Vitamin D3) 1,250 mcg PO FR 01/10/25
Review of Systems
-
History Source: Patient and Family
Constitutional: Reports Weight Loss (30 pounds since December) and Other (decreased appetite ); Denies Fever or Chills
EENT: Denies Sore Throat
Respiratory: Denies Cough, Hemoptysis or Trouble Breathing
Cardiac: Denies Chest Pain, Diaphoresis, Palpitations or Syncope
Abdomen/GI: Reports Nausea; Denies Vomiting or Diarrhea
: Reports Flank Pain (left side); Denies Dysuria, Frequency or Urgency
Skin: Denies Rash
Neurological: Denies Dizzy, Headache, Weakness or Numbness
Endocrine: Denies Polyuria or Polydipsia
Hematologic/Lymphatic: Denies Bleeding
Physical Exam
Vital Signs
Vital Signs
Temp Pulse Resp BP Pulse Ox
98.4 F 71 16 162/88 97
04/17/25 18:23 04/17/25 18:23 04/17/25 18:23 04/17/25 18:23 04/17/25 19:38
Physical Exam
General: Well Developed, No Apparent Distress, Comfortable and Conversant
HEENT: NormoCephalic, Moist mucous membranes, Nose Appears Normal and Ears Appear Normal
Respiratory: Clear, Non Labored Respirations and Decreased Breath Sounds
Cardiac: S1/S2 and Regular Rhythm; No Murmur
GI: Soft, Non Tender and Non Distended
Genito-urinary: Deferred by me
Musculoskeletal: No Clubbing, No Cyanosis and No Edema
Skin: Warm and IV/Catheter Site
Neuro: Awake, Alert and Nonfocal/grossly intact
Hematologic/Lymphatic: No Lymphadenopathy
Psych: Calm and Intact Judgment/Insight
Laboratory Results
-
04/17/25 19:59
04/17/25 19:59
Laboratory Results
Total Bilirubin 1.0 mg/dl (0.2-1.3) 04/17/25 19:59
AST 21 U/L (14-36) 04/17/25 19:59
ALT 17 U/L (0-35) 04/17/25 19:59
Alkaline Phosphatase 101 U/L (38-126) 04/17/25 19:59
Data Reviewed
-
CT Scan: Report Reviewed by me (Abd/Pel: There are two adjacent calculi within the distal right ureter spanning over approximately 7 mm in length, with associated moderate to severe right hydroureteronephrosis. There are additional bilateral
intrarenal calculi, most prominent in the lower pole left kidney measuring up to 1.3 cm, )
Lab Data: Labs Reviewed by me (hgb 9.8, hct 30.2, BUN 30, Creat 1.5, eGFR 34.79)
Impression/Plan
-
IMPRESSION/PLAN:
#left flank pain, nausea and decreased appetite 2/2 stent pain vs. obstructing calculi vs. infectious process
#Hx kidney stones
hgb 9.8, hct 30.2, BUN 30, Creat 1.5, eGFR 34.79
Abd/Pel CT: There are two adjacent calculi within the distal right ureter spanning over approximately 7 mm in length, with associated moderate to severe right hydroureteronephrosis.
There are additional bilateral intrarenal calculi, most prominent in the lower pole left kidney measuring up to 1.3 cm, with associated mild to moderate left hydronephrosis.
- Admit to med/surg
- Consult urology
- strain urine
- INF NSS 125cc/hr
- pain regimen
- antiemetics
- full liquid diet
- IV Aztreonam
#hypertension
- hold lisinopril
#hyperlipidemia
- continue atorvastatin
#type 2 diabetes
- AccuCheck AC & HS
- SSI
- hold metformin
#dementia
- continue donepezil
Code status: full code
DVT prophylaxis: SCDs
--- NOTE | 2025-04-17 21:30 | W.PN.UPDATE ---
Update Note
Progress Note Update
I could not get any information from the patient has dementia �
Information gathered by chart review and speaking with the ER staff and daughter at bed side
This note serves as an addendum to the H&P by firer helper REBECCA�
Ellen Germain
HPI
80F with dementia , diabetic, CKD3a with recent HX Large Lt 2 cm renal stone, s/p complex L ureteroscopy, laser lithotripsy, renal and pelvis fulguration and stent placement on 04/12/[address] Joaquin seen at ER:
- evaluation of L flank pain, nausea and decreased appetite.
- daughter reports she initially seemed fine but over the last 2 days seems to be complaining of pain and nausea.
- she took Tylenol at 3 PM today for pain.
ROS: deny any fever, chills and vomiting.
Relevant VS
Temp Pulse Resp BP Pulse Ox
98.4 F 71 16 162/88 97
04/17/25 18:23 04/17/25 18:23 04/17/25 18:23 04/17/25 18:23 04/17/25 19:38
PE
General: no apparent distress, not acutely ill
Neck: supple
CVS: S1 S2. RR. No M.
Lungs: clear bilaterally
Abdomen: Left flank tenderness but general soft abdomen
Neuro: alert and oriented. no focal neurological deficits
Skin: no rash
Psych: well kept. interactive and cooperative
Relevant Data
12/21/24 04/17/25
07:10 19:59
WBC 8.4
Hgb 9.8 L
Plt Count 249
Creatinine 1.3 H 1.5 H
eGFR 41.57 34.79
[address]
CT Abd/pel Without Iv Or Oral
- There are two adjacent calculi within the distal right ureter spanning over approximately 7 mm in length
associated moderate to severe right hydroureteronephrosis.
- There are additional bilateral intrarenal calculi, most prominent in the lower pole left kidney measuring up to 1.3 cm, with associated mild to moderate left hydronephrosis.
Last hospitalist admission: 12/14/2024 - 12/21/2024
DC DXs:
Acute kidney injury from dehydration and
obstructive renal stone status post stenting 12/17/2024.
ASSESSMENT & PLAN
Pending Rx reconciliation
Lt flank pain is likely Lt stent pain
CT suggestive of mild to moderate L HN + 2 adjacent Rt ureteric stone together with mod- severe R HN
Asso. nausea and decreased appetite
H risk for urosepsis ( Diabetic elderly , recent procedure wit stent, obstructed )
HX multiple ABx allergy mostly hives per RN daughter
- IVF
- PRN Analgesia and PRN anti emetics
- Pending UA
- Empiric IV Aztreonam
- Per Urologist - conservative approach as above - await spontaneous passage of both Rt ureteric stones
- f/u BMP
Associated post renal obstructed JACK
HX CKD3a - baseline Cr 1.3, baseline eGFR 40
- Hold HCTZ and Lisinopril
- FU Cr
- P Final Inspector Paper @ [place]
Essential HTN
- Holding HCTZ and Lisinopril
- continue BB
HLD
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
T2DM
- In December A1c 6.3
- Hold Metformin
- ISS low
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
- continue donepezil
DVT Px: SQH
Full code
IP MS
[2025-04-17 22:19] LABS: Urine Character Clear (Clear)
[2025-04-17 22:33] LABS: Urine Red Blood Cell >100 /HPF (0-2)
[2025-04-17 22:34] LABS: Urine White Cell 50-60 /HPF (0-5)
[2025-04-18 00:44] VITALS: BP 161/59; BMI 21.0
[2025-04-18] MEDS: NSS 1000 IV ×3 (01:24→17:33)
[2025-04-18] MEDS: AZACTAM 1000 MG IV ×3 (02:22→17:27)
[2025-04-18 07:18] VITALS: BP 125/55
[2025-04-18 07:22] LABS: Hematocrit 26.6 % (37.0-47.0); Hemoglobin 8.7 g/dL (12.0-16.0); Mean Corp Hgb Conc. 32.7 g/dL (33.0-37.0); Mean Corpuscular Volume 84.7 fL (81.0-99.0); Platelet Count 227 10^3/uL (130-400); Red Cell Dist. Width 15.0 % (11.5-14.5)
[2025-04-18 07:45] LABS: Blood Urea Nitrogen 27 mg/dl (7-17); Calcium 8.8 mg/dl (8.4-10.2); Carbon Dioxide 22 mmol/L (22-30); Chloride 108 mmol/L (98-107); Estimated Creatinine Clearance 24 ml/min; Glucose 62 mg/dl (70-99); Potassium 3.8 mmol/L (3.5-5.1); Sodium 140 mmol/L (135-145); eGFR 41.31
[2025-04-18 07:58] LABS: Glucose - Point of Care 65 mg/dl (70-99)
[2025-04-18] MEDS: TOPROL XL 200 MG PO (08:02)
[2025-04-18] MEDS: FOLVITE 1 MG PO (08:02)
[2025-04-18] MEDS: SODIUM BICARBONATE 650 MG PO ×3 (08:02→21:06)
--- NOTE | 2025-04-18 08:09 | PTCARENOTE ---
Pt BS was 64, MD made aware. Pt is asymptomatic, eating breakfast now and will recheck in 15 minutes
--- NOTE | 2025-04-18 09:00 | W.PN.URO.CBU ---
Today's Communication / Plan
-
supportive medical care
observe for stone passage
tentative plan for return to OR on wednesday
Assessment / Plan
-
reviewed all films
pt has expected findings on left side after laser litho of large volume stone
right side shows two stones stuck at sight of previous stone impaction- ? if there is some stx here- hydro on this side is likely chronic
pt does not appear toxic at this time
plan had been to return to OR next week for repeat ureteroscopy on left
will observe for right sided stone passage and f/u ucx- but tentative plane is to return to OR on wednesday if no evid of infx- for bilateral ureteroscopy and stenting
I did call daughter and review plan
will assess clinical status over the next 24rhs
Diagnosis
-
Date of Service: April 18, 2025
-
Patient Diagnosis:
kidney stones
Subjective
-
pt says she feels ok today- some discomfort with urination
no fevers- wbc nl
ucx pending
ct reviewed
Objective
-
Vital Signs
Temp Pulse Resp BP Pulse Ox
99 F 68 16 125/55 96
04/18/25 07:18 04/18/25 08:02 04/18/25 07:18 04/18/25 08:02 04/18/25 07:18
Intake and Output
04/17/25 04/18/25 04/19/25
06:59 06:59 06:59
Intake Total 0 / 0
Balance 0 / 0
Intake:
Oral fluids 0 / 0
Other:
Number of approximated MODERATE 1
amounts of urine
Laboratory Results
04/18/25 06:46
04/18/25 06:46
Review of Systems
-
Constitutional: Fatigue
Respiratory: No Symptoms
Cardiac: No Symptoms
Abdomen/GI: No Symptoms
: Frequency
Physical Exam
-
General - no acute distress
Abdomen - soft, non-tender
[2025-04-18 11:51] LABS: Glucose - Point of Care 123 mg/dl (70-99)
--- NOTE | 2025-04-18 15:00 | CM ---
Alert awake oriented patient who lives with her Layo and son Kenny in a 1 story home with 6 steps to enter. She is independent in activates of daily living.She does drive .She uses no adaptive devices.Pt unsure if she will need VN at dc.
[facility] in past . No SNF hx
Pharmacy [facility]
PCP Dr Hearn
PLAN Home may need VN Pt unsure
[2025-04-18 15:55] VITALS: BP 138/53
--- NOTE | 2025-04-18 16:11 | W.PN.HOSP.TC ---
Today's Communication/Plan
-
IVF
Antibiotics
OR Wednesday
Assessment / Plan
Assessment / Plan
80F with dementia, diabetes, CKD 3, s/p renal stone s/p complex intervention, presenting with left flank pain.
Lt flank pain
Recent L ureteroscopy, laser lithotripsy, renal and pelvis fulguration and stent placement on 04/12/[address] Joaquin
likely Lt stent pain
CT suggestive of mild to moderate L HN + 2 adjacent Rt ureteric stone together with mod- severe R HN
Plan for OR 04/20 with urology
- IVF
Pain control with IV morphine as needed
UTI
Positive UA
UCX pending HX multiple ABx allergy mostly hives per RN daughter
Empiric IV Aztreonam
Associated post renal obstructed JACK
HX CKD3a - baseline Cr 1.3, baseline eGFR 40
- Hold HCTZ and Lisinopril
Monitor creatinine
Essential HTN
- Holding HCTZ and Lisinopril
- continue BB
BP control
HLD
atorvastatin
DM
- In December A1c 6.3
- Hold Metformin
- ISS low
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
- continue donepezil
DVT Px: SQH
Full code
Anticipated Discharge: > 48 hours
Subjective/Interval History
-
Date of Service: April 18, 2025
Patient denies any pain in her left side, but notes some dysuria. Daughter at bedside.
Objective Data
-
Labs:
Laboratory Results
04/18/25
06:46
WBC 6.7
Hgb 8.7 L
Hct 26.6 L
Plt Count 227
Sodium 140
Potassium 3.8
Chloride 108 H
Carbon Dioxide 22
BUN 27 H
Creatinine 1.3 H
Glucose 62 L
Calcium 8.8
Vital Signs:
Vital Signs
Temp Pulse Resp BP Pulse Ox
98.3 F 71 16 138/53 98
04/18/25 15:55 04/18/25 15:55 04/18/25 15:55 04/18/25 15:55 04/18/25 15:55
I&O
04/17/25 04/18/25 04/19/25
06:59 06:59 06:59
Intake Total 0 / 0
Balance 0 / 0
Review of Systems
-
All other systems: Reviewed and negative
Physical Exam
-
General: No Apparent Distress
HEENT: Moist Mucous Membranes, Anicteric and PERRLA
Respiratory: Clear to Auscultation; Negative Wheezes, Rales or Rhonchi
Cardiac: Regular Rhythm and S1/S2; Negative Murmur, Rub or Gallop
GI: Soft, Nontender, Nondistended and Normal Bowel Sounds
Musculoskeletal: No Edema
Skin: Warm and Dry; Negative Rash, Ulcers or Lesions
Neuro: Awake and AO x 3
Hematologic / Lymphatic: No Lymphadenopathy
Psych: Calm
Data Reviewed
-
CT Scan: Report Reviewed by me, Discussed with Patient and Discussed with Family
Labs: Labs Reviewed by me, Discussed with Patient and Discussed with Family
[2025-04-18 16:51] LABS: Glucose - Point of Care 233 mg/dl (70-99)
[2025-04-18] MEDS: ARICEPT 10 MG PO (21:05)
[2025-04-18] MEDS: LIPITOR 40 MG PO (21:06)
[2025-04-18 21:48] LABS: Glucose - Point of Care 101 mg/dl (70-99)
[2025-04-18 23:01] VITALS: BP 148/65
[2025-04-18] MEDS: HEPARIN 5000 UNITS SC (23:39)
[2025-04-19] MEDS: NSS 1000 IV ×2 (00:32→17:08)
[2025-04-19] MEDS: AZACTAM 1000 MG IV (01:58)
[2025-04-19] MEDS: STERILE WATER FOR INJECTION 10 ML IV (01:58)
[2025-04-19 07:39] VITALS: BP 155/68
[2025-04-19 08:04] LABS: Hematocrit 27.1 % (37.0-47.0); Hemoglobin 8.6 g/dL (12.0-16.0); Mean Corp Hgb Conc. 31.7 g/dL (33.0-37.0); Mean Corpuscular Volume 84.7 fL (81.0-99.0); Platelet Count 227 10^3/uL (130-400); Red Cell Dist. Width 15.2 % (11.5-14.5)
[2025-04-19 08:12] LABS: Glucose - Point of Care 95 mg/dl (70-99)
--- NOTE | 2025-04-19 08:19 | W.PN.URO.CBU ---
Today's Communication / Plan
-
OR tomorrow
Assessment / Plan
-
reviewed all films
pt has expected findings on left side after laser litho of large volume stone
right side shows two stones stuck at sight of previous stone impaction- ? if there is some stx here- hydro on this side is likely chronic
pt does not appear toxic at this time
plan had been to return to OR next week for repeat ureteroscopy on left
appear stable
reviewed with daughter- plan to hold sub q heparin/npo after midnight for OR tomorrow
continue antibx and awiait ucx
Diagnosis
-
Date of Service: April 19, 2025
-
Patient Diagnosis:
kidney stones
Subjective
-
pt doing well
only c/o is of some bladder discomfort
no fevers
ucx pending
Objective
-
Vital Signs
Temp Pulse Resp BP Pulse Ox
97.9 F 67 18 155/68 98
04/19/25 07:39 04/19/25 07:39 04/19/25 07:39 04/19/25 07:39 04/19/25 07:39
Intake and Output
04/18/25 04/19/25 04/20/25
06:59 06:59 06:59
Intake Total 0 / 0 960 / 960
Output Total 2 / 2
Balance 0 / 0 958 / 958
Intake:
Oral fluids 0 / 0 960 / 960
Output:
Urine, Voided 2 / 2
Other:
Number of approximated MODERATE 1 3
amounts of urine
Laboratory Results
04/19/25 07:02
Review of Systems
-
Constitutional: Fatigue
Respiratory: No Symptoms
Cardiac: No Symptoms
Abdomen/GI: No Symptoms
: Frequency
Physical Exam
-
General - no acute distress
Abdomen - soft, non-tender
[2025-04-19 08:37] LABS: Blood Urea Nitrogen 20 mg/dl (7-17); Calcium 8.6 mg/dl (8.4-10.2); Carbon Dioxide 29 mmol/L (22-30); Chloride 112 mmol/L (98-107); Estimated Creatinine Clearance 32 ml/min; Glucose 91 mg/dl (70-99); Potassium 4.5 mmol/L (3.5-5.1); Sodium 142 mmol/L (135-145); eGFR 56.60
--- NOTE | 2025-04-19 08:51 | W.PN.HOSP.TC ---
Addendum entered and electronically signed by Krissy Cortez MD 04/19/25 10:12:
Correction to Error below:
Patient not on HCTZ, patient on lisinopril, will resume.
Original Note:
Today's Communication/Plan
-
IVF tonight
UCx No growth, stop Antibiotics
OR Wednesday
resume BP meds stepwise
Assessment / Plan
Assessment / Plan
80F with dementia, diabetes, CKD 3, s/p renal stone s/p complex intervention, presenting with left flank pain.
Lt flank pain
Recent L ureteroscopy, laser lithotripsy, renal and pelvis fulguration and stent placement on 04/12/[address] Joaquin
likely Lt stent pain
CT suggestive of mild to moderate L HN + 2 adjacent Rt ureteric stone together with mod- severe R HN
Plan for OR 04/20 with urology
- IVF starting tonight
NPO p MN
Pain control with IV morphine as needed
UTI
Positive UA
UCX no growth HX multiple ABx allergy mostly hives per RN daughter
discontinue Empiric IV Aztreonam
Associated post renal obstructed JACK
HX CKD3a - baseline Cr 1.3, baseline eGFR 40
- Hold HCTZ and Lisinopril
Monitor creatinine
Essential HTN
-resume HCTZ
continue holding Lisinopril
- continue BB
BP control
HLD
atorvastatin
DM
- In December A1c 6.3
- Hold Metformin
- ISS low
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
- continue donepezil
DVT Px: SQH
Full code
Anticipated Discharge: > 48 hours
Subjective/Interval History
-
Date of Service: April 19, 2025
Feeling well, no pain on left or right side. Still with mild dysuria
Objective Data
-
Labs:
Laboratory Results
04/19/25
07:02
WBC 5.7
Hgb 8.6 L
Hct 27.1 L
Plt Count 227
Sodium 142
Potassium 4.5
Chloride 112 H
Carbon Dioxide 29
BUN 20 H
Creatinine 1.0
Glucose 91
Calcium 8.6
Vital Signs:
Vital Signs
Temp Pulse Resp BP Pulse Ox
97.9 F 67 18 155/68 98
04/19/25 07:39 04/19/25 07:39 04/19/25 07:39 04/19/25 07:39 04/19/25 07:39
I&O
04/18/25 04/19/25 04/20/25
06:59 06:59 06:59
Intake Total 0 / 0 960 / 960
Output Total 2 / 2
Balance 0 / 0 958 / 958
Review of Systems
-
All other systems: Reviewed and negative
Physical Exam
-
General: No Apparent Distress
HEENT: Moist Mucous Membranes, Anicteric and PERRLA
Respiratory: Clear to Auscultation; Negative Wheezes, Rales or Rhonchi
Cardiac: Regular Rhythm and S1/S2; Negative Murmur, Rub or Gallop
GI: Soft, Nontender, Nondistended and Normal Bowel Sounds
Musculoskeletal: No Edema
Skin: Warm and Dry; Negative Rash, Ulcers or Lesions
Neuro: Awake and AO x 3
Hematologic / Lymphatic: No Lymphadenopathy
Psych: Calm
Data Reviewed
-
CT Scan: Report Reviewed by me, Discussed with Patient and Discussed with Family
Labs: Labs Reviewed by me, Discussed with Patient and Discussed with Family
[2025-04-19] MEDS: SODIUM BICARBONATE 650 MG PO ×3 (09:00→22:16)
[2025-04-19] MEDS: PERCOCET 5/325 1 TABLET PO ×2 (09:01→15:15)
[2025-04-19] MEDS: TYLENOL 650 MG PO (09:02)
[2025-04-19] MEDS: FOLVITE 1 MG PO (09:02)
[2025-04-19] MEDS: TOPROL XL 200 MG PO (09:02)
[2025-04-19] MEDS: HEPARIN SC (10:19)
[2025-04-19] MEDS: AZACTAM IV (10:20)
[2025-04-19] MEDS: STERILE WATER FOR INJECTION IV (10:20)
[2025-04-19] MEDS: ZESTRIL 20 MG PO (10:26)
[2025-04-19 11:53] LABS: Glucose - Point of Care 103 mg/dl (70-99)
--- NOTE | 2025-04-19 14:14 | CM ---
Chart reviewed. PT evaluation pending; Case Management will continue to monitor patient; and will support needs/services when identified
[2025-04-19 15:43] VITALS: BP 121/79
[2025-04-19 16:05] LABS: Glucose - Point of Care 119 mg/dl (70-99)
[2025-04-19 21:34] LABS: Glucose - Point of Care 130 mg/dl (70-99)
[2025-04-19] MEDS: LIPITOR 40 MG PO (22:15)
[2025-04-19] MEDS: ARICEPT 10 MG PO (22:16)
[2025-04-19 23:00] VITALS: BP 158/67
[2025-04-20] VITALS (10 sets, daily range): BP systolic 115–157; BP diastolic 52–74; PULSE 68
[2025-04-20] MEDS: NSS 1000 IV ×3 (00:42→22:51)
[2025-04-20 05:49] LABS: Glucose - Point of Care 101 mg/dl (70-99)
--- NOTE | 2025-04-20 06:18 | PTCARENOTE ---
Pt able to make her needs known.Denies pain. Pt NPO from [place] for [place]. Pt sheets were changed & CHG bath was provided. IV fluids continued as ordered. Plan of care continued.
[2025-04-20] MEDS: SODIUM BICARBONATE 650 MG PO ×3 (07:51→21:08)
[2025-04-20] MEDS: ZESTRIL 20 MG PO (07:52)
[2025-04-20] MEDS: TOPROL XL 200 MG PO (07:52)
[2025-04-20] MEDS: FOLVITE 1 MG PO (07:52)
--- NOTE | 2025-04-20 10:06 | W.IMMPOSTOP ---
Surgical Immed Post Op Note
-
Primary Surgeon:
jefry
Assisting Surgeon:
Pre-op Diagnosis:
bilateral stones
Post-op Diagnosis:
same
Procedure Performed:
1) right ureteroscopy/stx dilation/stone extraction and stent
2) left ureteroscopy/laser litho/stone extraction and stent
Anesthesia Type:
gen
Specimen / Cultures:
stone
Estimated Blood Loss:
5cc
Complications:
none
Operative Findings:
to pacu in stable condition
[2025-04-20 10:07] LABS: Glucose - Point of Care 93 mg/dl (70-99)
[2025-04-20] MEDS: NSS IV (10:52)
--- NOTE | 2025-04-20 11:10 | PTCARENOTE ---
Pt returned from OR/PACU via bed; accompanied by volunteers. Pt AAO x3, GRECO. VSS. On room air- no c/o SOB. Abd soft, rounded, to start regular diet. Pt c/o urethral burning; Dr Joaquin notified; pt to receive 1x order of Pyridium 200 mg PO.
SCD's in place. IVF's NSS @ 80 ml/ hr resumed via lt wrist site; infusing well without sx of infiltration. Pt resting quietly at present; family at bedside. Will continue to monitor.
[2025-04-20 11:58] LABS: Glucose - Point of Care 104 mg/dl (70-99)
[2025-04-20 12:14] LABS: Hematocrit 32.6 % (37.0-47.0); Hemoglobin 10.1 g/dL (12.0-16.0); Mean Corp Hgb Conc. 31.0 g/dL (33.0-37.0); Mean Corpuscular Volume 89.3 fL (81.0-99.0); Platelet Count 217 10^3/uL (130-400); Red Cell Dist. Width 15.0 % (11.5-14.5)
[2025-04-20 12:31] LABS: Calcium 8.6 mg/dl (8.4-10.2); Carbon Dioxide 26 mmol/L (22-30); Chloride 111 mmol/L (98-107); Glucose 106 mg/dl (70-99); Potassium 4.1 mmol/L (3.5-5.1); Sodium 141 mmol/L (135-145)
[2025-04-20 12:33] LABS: Blood Urea Nitrogen 16 mg/dl (7-17); Estimated Creatinine Clearance 40 ml/min; eGFR > 60.00
--- NOTE | 2025-04-20 12:40 | W.PN.HOSP.TC ---
Today's Communication/Plan
-
s/p OR, monitor postop
likely dc tomorrow
Assessment / Plan
Assessment / Plan
80F with dementia, diabetes, CKD 3, s/p renal stone s/p complex intervention, presenting with left flank pain.
Lt flank pain
Recent L ureteroscopy, laser lithotripsy, renal and pelvis fulguration and stent placement on 04/12/[address] Joaquin
likely Lt stent pain
CT suggestive of mild to moderate L HN + 2 adjacent Rt ureteric stone together with mod- severe R HN
s/p OR 04/20 with urology: 1) right ureteroscopy/stx dilation/stone extraction and stent
2) left ureteroscopy/laser litho/stone extraction and stent
Pain control with IV morphine as needed
Suspected UTI -ruled out
Positive UA
UCX no growth HX multiple ABx allergy mostly hives per RN daughter
discontinue Empiric IV Aztreonam
Associated post renal obstructed JACK�resolved
HX CKD3a - baseline Cr 1.3, baseline eGFR 40
- resume Lisinopril
Monitor creatinine, back to baseline
Essential HTN
Resume lisinopril
- continue BB
BP controlled
HLD
atorvastatin
DM
- In December A1c 6.3
- Hold Metformin
- ISS low
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
- continue donepezil
DVT Px: SQH
Full code
Anticipated Discharge: Within 24 hours
Subjective/Interval History
-
Date of Service: April 20, 2025
Patient is back from OR. Patient having some dysuria but otherwise feeling well, denies pain. Daughter at bedside.
Objective Data
-
Labs:
Laboratory Results
04/20/25
11:50
WBC 3.8 L
Hgb 10.1 L
Hct 32.6 L
Plt Count 217
Sodium 141
Potassium 4.1
Chloride 111 H
Carbon Dioxide 26
BUN 16
Creatinine 0.8
Glucose 106 H
Calcium 8.6
Vital Signs:
Vital Signs
Temp Pulse Resp BP Pulse Ox
97.4 F 80 0 135/63 94
04/20/25 10:05 04/20/25 10:30 04/20/25 10:30 04/20/25 10:30 04/20/25 10:36
I&O
04/19/25 04/20/25 04/21/25
06:59 06:59 06:59
Intake Total 960 / 960 480 / 480
Output Total / 2
Balance 958 / 958 480 / 480
Review of Systems
-
All other systems: Reviewed and negative
Physical Exam
-
General: No Apparent Distress
HEENT: Moist Mucous Membranes, Anicteric and PERRLA
Respiratory: Clear to Auscultation; Negative Wheezes, Rales or Rhonchi
Cardiac: Regular Rhythm and S1/S2; Negative Murmur, Rub or Gallop
GI: Soft, Nontender, Nondistended and Normal Bowel Sounds
Musculoskeletal: No Edema
Skin: Warm and Dry; Negative Rash, Ulcers or Lesions
Neuro: Awake and AO x 3
Hematologic / Lymphatic: No Lymphadenopathy
Psych: Calm
Data Reviewed
-
CT Scan: Report Reviewed by me, Discussed with Patient and Discussed with Family
Labs: Labs Reviewed by me, Discussed with Patient and Discussed with Family
--- NOTE | 2025-04-20 15:55 | PTCARENOTE ---
Pt resting comfortably since return fro OR. Pt AAO x3; forgetful. GRECO well, OOB with PT; gaye well. VSS. On room air- pulse ox 98&, no SOB noted. Abd soft, gaye regular diet. Voiding without difficulty. IVF's NSS @ 80 ml/h rinfusing via Lt wrist
site without sx of infiltration. OOB in chair at present, gaye well. Family at bedside. Will continue to monitor.
[2025-04-20 16:10] LABS: Glucose - Point of Care 322 mg/dl (70-99)
--- NOTE | 2025-04-20 16:49 | CM ---
PT said no skilled needs
Pt lives with and son.
Family will drive her home.
PLAN Home no needs
[2025-04-20 17:34] LABS: Glucose - Point of Care 240 mg/dl (70-99)
[2025-04-20] MEDS: NOVOLOG FLEXPEN-LOW RESISTANCE 2 UNITS SC (17:38)
[2025-04-20] MEDS: HEPARIN 5000 UNITS SC (20:57)
[2025-04-20] MEDS: LIPITOR 40 MG PO (21:08)
[2025-04-20] MEDS: ARICEPT 10 MG PO (21:08)
[2025-04-20 23:27] LABS: Glucose - Point of Care 195 mg/dl (70-99)
[2025-04-21 03:37] VITALS: BP 140/56
[2025-04-21 08:26] LABS: Hematocrit 25.3 % (37.0-47.0); Hemoglobin 7.9 g/dL (12.0-16.0); Mean Corp Hgb Conc. 31.2 g/dL (33.0-37.0); Mean Corpuscular Volume 85.5 fL (81.0-99.0); Platelet Count 191 10^3/uL (130-400); Red Cell Dist. Width 15.2 % (11.5-14.5)
[2025-04-21 08:26] LABS: Glucose - Point of Care 219 mg/dl (70-99)
[2025-04-21] MEDS: SODIUM BICARBONATE 650 MG PO (08:32)
[2025-04-21] MEDS: FOLVITE 1 MG PO (08:32)
[2025-04-21] MEDS: NOVOLOG FLEXPEN-LOW RESISTANCE 2 UNITS SC (08:32)
[2025-04-21] MEDS: HEPARIN 5000 UNITS SC (08:33)
[2025-04-21] MEDS: TOPROL XL 200 MG PO (08:33)
[2025-04-21] MEDS: ZESTRIL 20 MG PO (08:33)
[2025-04-21 08:42] LABS: Blood Urea Nitrogen 14 mg/dl (7-17); Calcium 8.2 mg/dl (8.4-10.2); Carbon Dioxide 23 mmol/L (22-30); Chloride 112 mmol/L (98-107); Estimated Creatinine Clearance 35 ml/min; Glucose 133 mg/dl (70-99); Potassium 4.7 mmol/L (3.5-5.1); Sodium 140 mmol/L (135-145); eGFR > 60.00
[2025-04-21 08:52] VITALS: BP 139/56
--- NOTE | 2025-04-21 09:00 | PTCARENOTE ---
Made Dr. Cortez aware of pt's drop in Hgb this morning from 10.1 yesterday to 7.9 today. No bleeding noted.
--- NOTE | 2025-04-21 09:03 | W.PN.URO.CBU ---
Today's Communication / Plan
-
urologically cleared for discharge
Assessment / Plan
-
s/p bilateral ureteroscopy/stone treatment and stents 04/20
looks good today
from gu standpoint- ok for discharge
would send home on pyridium 100mg bid/detrol la 4mg po qday and macrobid 100mg po bid for 5 days
spoke with daughter- she will call office to schedule outpt follow up
Diagnosis
-
Date of Service: April 21, 2025
-
Patient Diagnosis:
kidney stones
Post Op
bilateral ureteroscopy/stents 04/20
Subjective
-
pt feels great
minimal blader discomfort and burning
no fevers- nl wbc
anemia chronic
ucx negative
Objective
-
Vital Signs
Temp Pulse Resp BP Pulse Ox
98.5 F 70 16 139/56 95
04/21/25 08:52 04/21/25 08:52 04/21/25 08:52 04/21/25 08:52 04/21/25 08:52
Intake and Output
04/20/25 04/21/25 04/22/25
06:59 06:59 06:59
Intake Total 480 / 480 2610 / 2610
Output Total 175 / 175
Balance 480 / 480 2435 / 2435
Intake:
Oral fluids 480 / 480 900 / 900
IV fluids (Total) 1710 / 1710
Output:
Urine, Voided 175 / 175
Other:
How many times incontinent 1
MODERATE amount urine
Number of approximated MODERATE 1 1
amounts of urine
Number of approximated LARGE 1
amounts of urine
Laboratory Results
04/21/25 06:12
04/21/25 06:12
Review of Systems
-
Constitutional: No Symptoms
Respiratory: No Symptoms
Cardiac: No Symptoms
Abdomen/GI: No Symptoms
: Dysuria and Frequency
Musculoskeletal: No Symptoms
Skin: No Symptoms
Neurological: No Symptoms
Physical Exam
-
General - no acute distress
Abdomen - soft, non-tender
--- NOTE | 2025-04-21 11:47 | CM ---
Chart reviewed. Patient will d/c home today
Met w/ patient and daughter bedside. IMM verbally reviewed, copy provided, copy on chart
Daughter will transport home
No CM needs at this time
Plan: Home, no needs
[2025-04-21 11:55] LABS: Glucose - Point of Care 121 mg/dl (70-99)
[2025-04-21] MEDS: NOVOLOG FLEXPEN-LOW RESISTANCE SC (11:55)
[2025-04-21 13:33] VITALS: BP 121/48
--- NOTE | 2025-04-21 13:57 | W.DCSUMMARY ---
Discharge Summary
Discharge Data
Date of Admission: 04/17/25
Date of Discharge: 04/21/25
Total time spent discharging patient (in min): 31
-
Pending Results: No
Hospital Course
Attending physician on day of discharge:
Krissy Cortez MD
Admission diagnosis:
Left flank pain, right hydroureteronephrosis, left hydronephrosis
Discharge diagnosis:
Right ureteral stones, right renal stricture, large left renal stone
Secondary diagnoses:
Dementia
Diabetes
CKD 3
Consultations:
Urology Dr. Joaquin
Procedures:
04/20: Cystoscopy, right ureteroscopy with stricture dilation,
stone extraction, and stent placement and left ureteroscopy with
laser lithotripsy, stone extraction, and stent replacement.
Hospital course:
80F with dementia, diabetes, CKD 3, s/p renal stone s/p complex intervention, presenting with left flank pain. Consulted urology, patient performed cystoscopy 04/20, found to have large left renal stone, right ureteral stones, right renal
stricture, underwent above procedure with relief of the pain. Patient had dysuria, positive UA but urine culture with no growth, patient was empirically on IV aztreonam which was discontinued. Patient was discharged with 5 more days of Macrobid as
well as Pyridium and Detrol as per urology recommendation.
Diagnostic Findings:
Anemia Hgb 7.9 on discharge, had decreased from 10.1 day before, however day before that was 8.6. Patient advised to follow-up with PCP for iron panel, GI evaluation.
Physical exam on discharge:
Gen: NAD
HEENT: PERRLA, EOMI, MMM, neck supple
Cards: RRR, murmur
Resp: Lungs CTAB, no W/R/R
GI: soft, NT/ND/NABS
MSK: No edema
Skin: warm and dry, no rash, ulcer or lesions
Heme: No LAD
Psych: Calm
Neuro: AAOx3
Discharge disposition:
Home
Discharge Plan
-
Patient Disposition: Home (Routine Discharge)
Discharge Diagnosis/Procedures: Kidney stones/bilateral ureteroscopy/stone treatment and stents 04/20
Diet: Regular
Activity: As tolerated
Bathing Restrictions: None
Referrals:
Agustin Hearn DO [Family Provider, Family Practice]
Brett Joaquin Jr., MD [Active, Urology]
Prescriptions:
New
phenazopyridine 100 mg Tablet
100 mg PO Q8 7 Days Qty: 21 0RF
nitrofurantoin monohyd/m-cryst [Macrobid] 100 mg capsule
100 mg PO BID 5 Days Qty: 10 0RF
tolterodine 4 mg capsule,extended release 24hr
4 mg PO DAILY 7 Days Qty: 7 0RF
Slow Fe 137 mg (45 mg iron) tablet extended release
137 mg PO BID Qty: 60 0RF
Continued
donepezil [Aricept] 10 mg Tablet
10 mg PO HS
metoprolol succinate 200 mg Tablet Extended Release 24 Hr
200 mg PO DAILY
folic acid 1 mg Tablet
1 mg PO DAILY
metformin 500 mg Tablet
500 mg PO BID@0800,1700 Qty: 60 0RF
atorvastatin 20 mg Tablet
40 mg PO HS Qty: 60 0RF
sodium bicarbonate 650 mg Tablet
650 mg PO TID Qty: 90 0RF
lisinopril 20 mg tablet
20 mg PO DAILY Qty: 30 0RF
cholecalciferol (vitamin D3) [Vitamin D3] 125 mcg (5,000 unit) Tablet
1,250 mcg PO FR
Discharge Orders:
Discharge Patient (As Directed); Ordered 04/21/25
Ordered By: Krissy Cortez
Discharge Date and Time
Print Language: SAO TOMEAN
== END 2025-04-21 14:22 | disposition home or self-care (01) | DRG 660 ==
LOC: 4 EAST ACU 22:35
PROVIDERS: Nurse Practitioner Family; Specialist; ADMITTING PHYSICIAN Internal Medicine; ATTENDING PHYSICIAN Internal Medicine; EMERGENCY PHYSICIAN Emergency Medicine; FAMILY PHYSICIAN Family Medicine; OTHER PHYSICIAN Specialist
PROC: 0T788DZ Dilation of Bilateral Ureters with Intraluminal Device, Via Natural or Artificial Opening Endoscopic (ICD-10-PCS; 2025-04-20)
PROC: 0TC68ZZ Extirpation of Matter from Right Ureter, Via Natural or Artificial Opening Endoscopic (ICD-10-PCS; 2025-04-20)
PROC: 0TC78ZZ Extirpation of Matter from Left Ureter, Via Natural or Artificial Opening Endoscopic (ICD-10-PCS; 2025-04-20)
DX: N13.1 Hydronephrosis with ureteral stricture, not elsewhere classified (principal); T83.84XA Pain due to genitourinary prosthetic devices, implants and grafts, initial encounter; N17.9 Acute kidney failure, unspecified; N18.31 Chronic kidney disease, stage 3a; I12.9 Hypertensive chronic kidney disease with stage 1 through stage 4 chronic kidney disease, or unspecified chronic kidney disease; E78.5 Hyperlipidemia, unspecified; E11.22 Type 2 diabetes mellitus with diabetic chronic kidney disease; F02.80 Dementia in other diseases classified elsewhere, unspecified severity, without behavioral disturbance, psychotic disturbance, mood disturbance, and anxiety; G30.9 Alzheimer's disease, unspecified; N13.2 Hydronephrosis with renal and ureteral calculous obstruction; Y83.1 Surgical operation with implant of artificial internal device as the cause of abnormal reaction of the patient, or of later complication, without mention of misadventure at the time of the procedure; Z87.442 Personal history of urinary calculi
CPT/HCPCS: 74176; 74420; 76000; 80048; 80053; 81003; 81015; 82365; 82962; 85025; 85027; 87086; 96360; 97161; 99284; C2617